=== PATIENT | male | born 1960 | race Caucasian/White ===

== ENCOUNTER → 2016-10-16 | Outpatient (CLI) | payer BC | LOC: MW.CHFP 13:06 | PROVIDERS: ATTEND Family Medicine | DX: E29.1 Testicular hypofunction (principal); N52.1 Erectile dysfunction due to diseases classified elsewhere | CPT/HCPCS: 36415; 84402; 84403 ==

== ENCOUNTER 2018-05-13 10:16 | Observation (INO) | payer MEDICAID ==
[2018-05-13] MEDS ORDERED: Famotidine 20 MG/2 ML SDV IVPUSH ONE (10:26)
[2018-05-13] MEDS ORDERED: Sodium Chloride 0.9% 10 ML Syringe FLUSH PRN (10:26)
[2018-05-13] MEDS ORDERED: Aspirin 81 MG Tab.Chew PO ONE (10:26)
[2018-05-13] MEDS ORDERED: Sodium Chloride 0.9% 1,000 ML IV ONE (10:26)
[2018-05-13] MEDS ORDERED: Sodium Chloride 0.9% 2.5 ML Syringe FLUSH PRN (10:26)
--- NOTE | 2018-05-13 10:33 | EDM.PDOC ---
ED HPI GENERAL MEDICAL PROBLEM - General Chief Complaint: Chest Pain Stated Complaint: CHEST PAINS Time Seen by Provider: 05/13/18 10:30 Source of Information: Reports: Patient History Limitations: Reports: No Limitations - History of Present Illness INITIAL COMMENTS - FREE TEXT/NARRATIVE: HISTORY AND PHYSICAL: []57-year-old male presenting with lower sternal chest pain History of Present Illness: []Patient noticed pain starting at 5:30 this morning and took some Prilosec it was indigestion Pain at that time was 8/10 at this time he says it's about a 6/10 No family history of cardiac disease Family members of "old age". Review of Systems: As per history of present illness and below otherwise all systems reviewed and negative. Past medical history: As per history of present illness and as reviewed below otherwise noncontributory. Surgical history: As per history of present illness and as reviewed below otherwise noncontributory. Social history: No reported history of drug or alcohol abuse. Family history: As per history of present illness and as reviewed below otherwise noncontributory. Physical exam: Alert and oriented gentleman answering questions appropriately in full sentences without any shortness of breath. HEENT: Atraumatic, normocehpalic, pupils reactive, negative for conjunctival pallor or scleral icterus, mucous membranes moist, throat clear, neck supple, nontender, trachea midline. Lungs: Clear to auscultation, breath sounds equal bilaterally, chest non tender. Heart: S1S2, regular, negative for clicks, rubs, or JVD. Abdomen: Soft, nondistended, nontender. Negative for masses or hepatossplenmegaly. Negative for costovertebral tenderness. Pelvis: Stable nontender. Genitourinary: Deferred. Rectal: Deferred Extremities: Atraumatic, negative for cords or calf pain. Neurovascular unremarkable. Neuro: Awake, alert, oriented. Cranial nerves II through XII unremarkable. Cerebellum unremarkable. Motor and sensory unremarkable throughout. Exam nonfocal. Have discussed with the patient that his troponin and EKG are negative for cardiac involvement however would recommend that he be observed on telemetry for the next 24 hours and he is agreeable to this recommended course of action. Discussed this case with Dr. Davenport who has accepted this patient for observation on telemetry chest pain rule out ACS/ Diagnostics: []CBC CMP and PT/INR troponin chest x-ray EKG Therapeutics: []Aspirin 1 L normal saline Protonix He's had Pepcid Nitrostat Impression: []Atypical chest pain Rule out ACS Plan: []Refer to observation on telemetry Definitive disposition and diagnosis as appropriate pending reevaluation and review of above. Onset: Today, Sudden Duration: Hour(s): Location: Reports: Chest Quality: Reports: Ache Severity: Moderate Improves with: Reports: None Worsens with: Reports: None Associated Symptoms: Reports: No Other Symptoms Left Chest Pain Score (Numeric/FACES): 6 - Related Data Allergies Allergy/AdvReac Type Severity Reaction Status Date / Time No Known Allergies Allergy Verified 05/13/18 10:24 Home Meds: Home Meds Hydrocodone/Acetaminophen [Hydrocodon-Acetaminophn 10-325] 10 - 325 mg PO DAILY 05/13/18 [History] Methadone 10 mg PO DAILY 05/13/18 [History] Testosterone Cypionate [Depo-Testosterone] 2,000 mg IM ASDIRECTED 05/13/18 [ History] ED ROS GENERAL - Review of Systems Review Of Systems: ROS reveals no pertinent complaints other than HPI. ED EXAM, GENERAL - Physical Exam Exam: See Below (see dictation) EKG INTERPRETATION EKG Date: 05/13/18 Rhythm: NSR Comparison: No Change Course - Vital Signs Last Recorded V/S: Last Vital Signs Temp 36.8 C 05/13/18 10:20 Pulse 67 05/13/18 10:20 Resp 20 05/13/18 10:20 BP 140/78 05/13/18 11:25 Pulse Ox 96 05/13/18 10:26 - Orders/Labs/Meds Orders: Active Orders 24 hr Category Date Time Status Cardiac Monitoring [RC] . DIRECTED Care 05/13/18 10:26 Active EKG Documentation Completion [RC] STAT Care 05/13/18 10:26 Active Oxygen Therapy [RC] ASDIRECTED Care 05/13/18 10:26 Active Pulse Oximetry [RC] ASDIRECTED Care 05/13/18 10:26 Active UA W/MICROSCOPIC [URIN] Stat Lab 05/13/18 10:27 Ordered Sodium Chloride 0.9% [Saline Flush] Med 05/13/18 10:26 Active 10 ml FLUSH ASDIRECTED PRN Sodium Chloride 0.9% [Saline Flush] Med 05/13/18 10:26 Active 2.5 ml FLUSH ASDIRECTED PRN Saline Lock Insert [OM.PC] Stat Oth 05/13/18 10:26 Ordered Medication Orders Sodium Chloride (Saline Flush) 10 ml FLUSH ASDIRECTED PRN PRN Reason: Keep Vein Open Sodium Chloride (Saline Flush) 2.5 ml FLUSH ASDIRECTED PRN PRN Reason: Keep Vein Open Labs: Laboratory Tests 05/13/18 05/13/18 05/13/18 Range/Units 10:24 10:24 10:24 WBC 11.87 H (4.0-11.0) K/uL RBC 5.13 (4.50-5.90) M/uL Hgb 15.5 (13.0-17.0) g/dL Hct 46.7 (38.0-50.0) % MCV 91.0 (80.0-98.0) fL MCH 30.2 (27.0-32.0) pg MCHC 33.2 (31.0-37.0) g/dL RDW Std Deviation 44.6 (28.0-62.0) fl RDW Coeff of Abdirizak 14 (11.0-15.0) % Plt Count 313 (150-400) K/uL MPV 9.00 (7.40-12.00) fL Neut % (Auto) 87.6 H (48.0-80.0) % Lymph % (Auto) 7.5 L (16.0-40.0) % [place] % (Auto) 4.0 (0.0-15.0) % Eos % (Auto) 0.7 (0.0-7.0) % Baso % (Auto) 0.2 (0.0-1.5) % Neut # (Auto) 10.4 H (1.4-5.7) K/uL Lymph # (Auto) 0.9 (0.6-2.4) K/uL [place] # (Auto) 0.5 (0.0-0.8) K/uL Eos # (Auto) 0.1 (0.0-0.7) K/uL Baso # (Auto) 0.0 (0.0-0.1) K/uL Nucleated RBC % 0.0 /100WBC Nucleated RBCs # 0 K/uL INR 0.95 Sodium 140 (136-148) mmol/L Potassium 3.5 (3.5-5.1) mmol/L Chloride 103 (98-107) mmol/L Carbon Dioxide 28.6 (21.0-32.0) mmol/L BUN 17 (7.0-18.0) mg/dL Creatinine 0.9 (0.8-1.3) mg/dL Est Cr Clr Drug Dosing 88.67 mL/min Estimated GFR (MDRD) > 60.0 ml/min Glucose 133 H (74-106) mg/dL Calcium 9.3 (8.5-10.1) mg/dL Total Bilirubin 0.2 (0.2-1.0) mg/dL AST 18 (15-37) IU/L ALT 24 (14-63) IU/L Alkaline Phosphatase 78 (46-116) U/L Troponin I < 0.050 (0.000-0.056) ng/mL Total Protein 7.6 (6.4-8.2) g/dL Albumin 4.1 (3.4-5.0) g/dL Globulin 3.5 (2.0-3.5) g/dL Albumin/Globulin Ratio 1.2 L (1.3-2.8) Amylase 70 (25-115) U/L Lipase 122 (73-393) U/L Meds: Medications Generic Name Dose Route Start Last Admin Trade Name Nickq PRN Reason Stop Dose Admin Sodium Chloride 10 ml 05/13/18 10:26 Saline Flush FLUSH ASDIRECTED PRN Keep Vein Open Sodium Chloride 2.5 ml 05/13/18 10:26 Saline Flush FLUSH ASDIRECTED PRN Keep Vein Open Discontinued Medications Generic Name Dose Route Start Last Admin Trade Name Freq PRN Reason Stop Dose Admin Aspirin 324 mg 05/13/18 10:05/13/18 10:41 Aspirin PO 05/13/18 10:27 324 mg ONETIME ONE Administration Famotidine 20 mg 05/13/18 10:05/13/18 10:41 Pepcid IVPUSH 05/13/18 10:27 20 mg ONETIME ONE Administration Sodium Chloride 1,000 mls @ 999 mls/hr 05/13/18 10:05/13/18 10:41 Normal Saline IV 05/13/18 11:26 999 mls/hr BOLUS ONE Administration Ketorolac Tromethamine 30 mg 05/13/18 11:29 Toradol IVPUSH 05/13/18 11:30 ONETIME ONE Nitroglycerin 0.4 mg 05/13/18 10:43 05/13/18 11:20 Nitrostat SL 0.4 mg Q5M PRN Administration Chest Pain Departure - Departure Time of Disposition: 11:39 Disposition: Refer to Observation Condition: Fair Clinical Impression: Atypical chest pain Referrals: PCP,None [Primary Care Provider] - Forms: ED Department Discharge - My Orders Last 24 Hours: My Active Orders 05/13/18 10:26 Cardiac Monitoring [RC] . DIRECTED EKG Documentation Completion [RC] STAT Oxygen Therapy [RC] ASDIRECTED Pulse Oximetry [RC] ASDIRECTED Sodium Chloride 0.9% [Saline Flush] 10 ml FLUSH ASDIRECTED PRN Sodium Chloride 0.9% [Saline Flush] 2.5 ml FLUSH ASDIRECTED PRN Saline Lock Insert [OM.PC] Stat 05/13/18 10:27 UA W/MICROSCOPIC [URIN] Stat - Assessment/Plan Last 24 Hours: My Active Orders 05/13/18 10:26 Cardiac Monitoring [RC] . DIRECTED EKG Documentation Completion [RC] STAT Oxygen Therapy [RC] ASDIRECTED Pulse Oximetry [RC] ASDIRECTED Sodium Chloride 0.9% [Saline Flush] 10 ml FLUSH ASDIRECTED PRN Sodium Chloride 0.9% [Saline Flush] 2.5 ml FLUSH ASDIRECTED PRN Saline Lock Insert [OM.PC] Stat 05/13/18 10:27 UA W/MICROSCOPIC [URIN] Stat
--- NOTE | 2018-05-13 11:00 | CR ---
EXAMINATION: Portable chest radiograph. HISTORY: Chest pain. FINDINGS: The trachea is midline. The cardiomediastinal silhouette is within normal limits. No pulmonary infilt rates, effusions or pneumothorax. Osseous structures appear unremarkable. IMPRESSION: No acute cardiopulmonary process.
[2018-05-13 11:02] LABS: CHLORIDE,CL 103 mmol/L (98-107); SODIUM,NA 140 mmol/L (136-148)
[2018-05-13] MEDS: Nitroglycerin 0.4 MG Tab.SL SL PRN ×3 (11:09→11:20)
[2018-05-13] MEDS ORDERED: Ketorolac 30 MG/ML SDV IVPUSH ONE (11:29)
--- NOTE | 2018-05-13 12:43 | PCM.HP ---
H&P History of Present Illness - General Date of Service: 05/13/18 Admit Problem/Dx: Admission Diagnosis/Problem Admission Diagnosis/Problem Chest pain Source of Information: Patient, Old Records History Limitations: Reports: No Limitations - History of Present Illness Initial Comments - Free Text/Narative: The patient is an otherwise healthy 57-year-old gentleman who had presented to the emergency room today with a complaint of chest pain. The patient's episode of chest pain stands out because he says that it woke him up at 5:30 this morning. The patient further says that the pain has been located into the lower , left part of his sternum and rib cage and he has described this as pressure. The patient says the pain does not radiate. The patient says that the pain has been relieved with the use of Toradol. The patient has denied any other specific aggravating or relieving factors. He says that the pain is down to a 1 out of 10. The patient reports that he had one episode of vomiting as well as diaphoresis to accompany this. No family history of early heart disease. The patient does not use tobacco. 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 Onset of Symptoms: Reports: Sudden Duration of Symptoms: Reports: Hour(s):, Improving Location: Reports: Chest. Denies: Radiates to Quality: Reports: Pressure Severity: Severe Improves with: Reports: Medication Worsens with: Reports: None Context: Reports: Rest Associated Symptoms: Reports: Diaphoresis, Nausea/Vomiting. Denies: Cough, Shortness of Breath, Syncope Left Chest Pain Score (Numeric/FACES): 3 - Related Data Allergies/Adverse Reactions: Allergies Allergy/AdvReac Type Severity Reaction Status Date / Time No Known Allergies Allergy Verified 05/13/18 10:24 Home Medications: Home Meds Hydrocodone/Acetaminophen [Hydrocodon-Acetaminophn 10-325] 10 - 325 mg PO DAILY 05/13/18 [History] Methadone 10 mg PO DAILY 05/13/18 [History] Testosterone Cypionate [Depo-Testosterone] 2,000 mg IM ASDIRECTED 05/13/18 [ History] Past Medical History HEENT History: Reports: Impaired Vision Other HEENT History: reading glasses Cardiovascular History: Reports: None Respiratory History: Reports: None Gastrointestinal History: Reports: GERD Genitourinary History: Reports: None Musculoskeletal History: Reports: Back Pain, Chronic Other Musculoskeletal History: sciatica Neurological History: Reports: None Psychiatric History: Reports: None Endocrine/Metabolic History: Reports: None Hematologic History: Reports: None Immunologic History: Reports: None Oncologic (Cancer) History: Reports: None Dermatologic History: Reports: None - Infectious Disease History Infectious Disease History: Reports: Chicken Pox - Past Surgical History Neurological Surgical History: Reports: Lumbar Spine Musculoskeletal Surgical History: Reports: Other (See Below) (Left elbow) Social & Family History - Family History Family Medical History: Noncontributory - Tobacco Use Smoking Status *Q: Former Smoker Years of Tobacco use: 18 Packs/Tins Daily: 1 Used Tobacco, but Quit: Yes Month/Year Tobacco Last Used: 2003 Second Hand Smoke Exposure: No - Caffeine Use Caffeine Use: Reports: Coffee - Alcohol Use Alcohol Use History: No Days Per Week of Alcohol Use: 1 Number of Drinks Per Day: 1 Total Drinks Per Week: 1 - Recreational Drug Use Recreational Drug Use: No - Living Situation & Occupation Living situation: Reports: , with Family Occupation: Employed H&P Review of Systems - Review of Systems: Review Of Systems: See Below General: Reports: Diaphoresis HEENT: Reports: No Symptoms Pulmonary: Reports: Shortness of Breath Cardiovascular: Reports: Chest Pain, Lightheadedness Gastrointestinal: Reports: Abdominal Pain, Vomiting Genitourinary: Reports: No Symptoms Musculoskeletal: Reports: Back Pain Skin: Reports: No Symptoms Psychiatric: Reports: No Symptoms Neurological: Reports: No Symptoms Hematologic/Lymphatic: Reports: No Symptoms Immunologic: Reports: No Symptoms Exam - Exam Exam: See Below - Vital Signs Vital Signs: Last Vital Signs Temp 36.2 C 05/13/18 12:15 Pulse 78 05/13/18 12:15 Resp 16 05/13/18 12:15 BP 132/77 05/13/18 12:15 Pulse Ox 96 05/13/18 12:15 Weight: 73.663 kg - Exam Quality Assessment: No: Supplemental Oxygen General: Alert, Oriented, Cooperative HEENT: Conjunctiva Clear, EACs Clear, EOMI, Hearing Intact, Mucosa Moist & [place] , Nares Patent Neck: Supple, Trachea Midline, Full Range of Motion. No: Lymphadenopathy Cardiovascular: Regular Rate, Regular Rhythm, Normal S1, Normal S2 GI/Abdominal Exam: Normal Bowel Sounds, Soft, Non-Tender, No Organomegaly, No Distention, No Mass (Male) Exam: Deferred Rectal (Males) Exam: Deferred Back Exam: Normal Inspection. No: Full Range of Motion (Secondary to multiple lumbar surgeries) Extremities: Normal Inspection, No Pedal Edema Neurological: Cranial Nerves Intact, Reflexes Equal Bilateral, Normal Gait, Focal Deficit (Mild left-sided foot flexor and extensor weakness with decreased muscle mass to lower extremity) Neuro Extensive - Mental Status: Alert, Oriented x3 Neuro Extensive - Motor, Sensory, Reflexes: CN II-XII Intact, Normal Gait Psychiatric: Alert, Normal Affect, Normal Mood - Patient Data Lab Results Last 24 hrs: Laboratory Results - last 24 hr 05/13/18 05/13/18 05/13/18 Range/Units 10:24 10:24 10:24 WBC 11.87 H (4.0-11.0) K/uL RBC 5.13 (4.50-5.90) M/uL Hgb 15.5 (13.0-17.0) g/dL Hct 46.7 (38.0-50.0) % MCV 91.0 (80.0-98.0) fL MCH 30.2 (27.0-32.0) pg MCHC 33.2 (31.0-37.0) g/dL RDW Std Deviation 44.6 (28.0-62.0) fl RDW Coeff of Abdirizak 14 (11.0-15.0) % Plt Count 313 (150-400) K/uL MPV 9.00 (7.40-12.00) fL Neut % (Auto) 87.6 H (48.0-80.0) % Lymph % (Auto) 7.5 L (16.0-40.0) % [place] % (Auto) 4.0 (0.0-15.0) % Eos % (Auto) 0.7 (0.0-7.0) % Baso % (Auto) 0.2 (0.0-1.5) % Neut # (Auto) 10.4 H (1.4-5.7) K/uL Lymph # (Auto) 0.9 (0.6-2.4) K/uL [place] # (Auto) 0.5 (0.0-0.8) K/uL Eos # (Auto) 0.1 (0.0-0.7) K/uL Baso # (Auto) 0.0 (0.0-0.1) K/uL Nucleated RBC % 0.0 /100WBC Nucleated RBCs # 0 K/uL INR 0.95 Sodium 140 (136-148) mmol/L Potassium 3.5 (3.5-5.1) mmol/L Chloride 103 (98-107) mmol/L Carbon Dioxide 28.6 (21.0-32.0) mmol/L BUN 17 (7.0-18.0) mg/dL Creatinine 0.9 (0.8-1.3) mg/dL Est Cr Clr Drug Dosing 88.67 mL/min Estimated GFR (MDRD) > 60.0 ml/min Glucose 133 H (74-106) mg/dL Calcium 9.3 (8.5-10.1) mg/dL Total Bilirubin 0.2 (0.2-1.0) mg/dL AST 18 (15-37) IU/L ALT 24 (14-63) IU/L Alkaline Phosphatase 78 (46-116) U/L Troponin I < 0.050 (0.000-0.056) ng/mL Total Protein 7.6 (6.4-8.2) g/dL Albumin 4.1 (3.4-5.0) g/dL Globulin 3.5 (2.0-3.5) g/dL Albumin/Globulin Ratio 1.2 L (1.3-2.8) Amylase 70 (25-115) U/L Lipase 122 (73-393) U/L Result Diagrams: 05/13/18 10:24 05/13/18 10:24 - Problem List (1) Atypical chest pain SNOMED Code(s): 975578769 ICD Code: R07.89 - OTHER CHEST PAIN Status: Acute Priority: High Current Visit: Yes (2) Chronic pain syndrome SNOMED Code(s): 164479133 ICD Code: G89.4 - CHRONIC PAIN SYNDROME Status: Chronic Priority: Medium Current Visit: Yes (3) Status post lumbar surgery SNOMED Code(s): 518152391, 465769899, 233921329 ICD Code: Z98.890 - OTHER SPECIFIED POSTPROCEDURAL STATES Status: Chronic Priority: Medium Current Visit: Yes (4) Lumbar myelopathy SNOMED Code(s): 79379355, 85249687 ICD Code: G95.9 - DISEASE OF SPINAL CORD, UNSPECIFIED Status: Chronic Priority: Medium Current Visit: Yes (5) Leukocytosis SNOMED Code(s): 047153457, 459945383 ICD Code: D72.829 - ELEVATED WHITE BLOOD CELL COUNT, UNSPECIFIED Status: Acute Priority: High Current Visit: Yes Qualifiers: Leukocytosis type: bandemia Qualified Code(s): D72.825 - Bandemia Problem List Initiated/Reviewed/Updated: Yes Orders Last 24hrs: Active Orders 24 hr Category Date Time Status Patient Status [ADT] Stat ADT 05/13/18 11:37 Active Cardiac Monitoring [RC] . DIRECTED Care 05/13/18 10:26 Active EKG Documentation Completion [RC] STAT Care 05/13/18 10:26 Active Oxygen Therapy [RC] ASDIRECTED Care 05/13/18 10:26 Active Pulse Oximetry [RC] ASDIRECTED Care 05/13/18 10:26 Active UA W/MICROSCOPIC [URIN] Stat Lab 05/13/18 10:27 Ordered Sodium Chloride 0.9% [Saline Flush] Med 05/13/18 10:26 Active 10 ml FLUSH ASDIRECTED PRN Sodium Chloride 0.9% [Saline Flush] Med 05/13/18 10:26 Active 2.5 ml FLUSH ASDIRECTED PRN Saline Lock Insert [OM.PC] Stat Oth 05/13/18 10:26 Ordered Medication Orders Sodium Chloride (Saline Flush) 10 ml FLUSH ASDIRECTED PRN PRN Reason: Keep Vein Open Sodium Chloride (Saline Flush) 2.5 ml FLUSH ASDIRECTED PRN PRN Reason: Keep Vein Open Assessment/Plan Comment:: The patient is a 57-year-old gentleman who had been admitted to rule out acute coronary syndrome. The patient does not have any pain at present time. The patient will be admitted observation and kept on telemetry. I've also ordered repeat troponins as well as laboratory testings for the morning. The patient also have an EKG in the morning. I anticipate that if the patient has had no reoccurrence of the chest pain and workup is thus far negative that he should be appropriate for discharge in the morning. Patient has been recommended to continue to ambulate as tolerated. He is also to have a heart healthy diet. The patient will also have when necessary medication for pain and sleep. Because of the patient's possible GERD causing his symptoms I've ordered Zantac for the patient today. The patient will be further evaluated for discharge in the morning.
[2018-05-13] MEDS ORDERED: Acetaminophen 325 MG Tab PO PRN (12:47)
[2018-05-13] MEDS ORDERED: Docusate Sodium 100 MG Cap PO PRN (12:47)
[2018-05-13] MEDS ORDERED: Temazepam 15 MG Cap PO PRN (12:47)
[2018-05-13] MEDS ORDERED: oxyCODONE 5 MG Tab PO PRN (12:47)
[2018-05-13] MEDS ORDERED: Ondansetron 4 MG Tab.DIS PO PRN (12:47)
[2018-05-13] MEDS ORDERED: Morphine 2 MG/ML Syringe IVPUSH PRN (12:47)
[2018-05-13] MEDS: Ranitidine 15 MG/ML Syrup 10 ML UD Cup PO SCH ×2 (14:20→20:18)
[2018-05-14 05:41] LABS: CHLORIDE,CL 107 mmol/L (98-107); SODIUM,NA 140 mmol/L (136-148)
--- NOTE | 2018-05-14 07:49 | PCM.DCSUM1 ---
<Juan Newton - Last Filed: 05/14/18 07:42> Discharge Summary - Hospital Course Free Text/Narrative:: Admission date:05/13/2018 Discharge date: 05/14/2018 Admission diagnosis: #1. ACS rule out #2. History of HTN, stomach ulcers Discharge diagnosis: #1. GERD #2. Chest pain resolved #3. History of HTN, stomach ulcer, testosterone therapy Hospital course: 57M with the above mentioned history that presented to the ER after experiencing chest pain in his sleep. Patient said that he woke up experiencing pain located on the right side/epigastric region that was reproducible, he thought it was acid reflux so took prilosec/tums that didnt help. In the ER, he got toradol which he said helped. Nitro made the chest pain worse. EKG was unremarkable, troponins trended x3 negative. In the morning on my evaluation, his chest pain had resolved. I went over the etiology of the issue with the patient. I'd like to set him up with an outpatient stress test. I'd also like to test him for H. Pylori for which his PCP can f/u on. He understands and agrees to the plan. Advised to return to seek attention if symptoms reoccur. He felt comfortable going home. - Discharge Data Discharge Date: 05/14/18 Discharge Disposition: Home, Self-Care 01 Condition: Fair - Patient Instructions Diet: Usual Diet as Tolerated Activity: As Tolerated Driving: May Drive Today Showering/Bathing: May Shower Wound/Incision Care: Keep Operative Site/Wound Site Clean and Dry Notify Provider of: Fever, Increased Pain, Swelling and Redness, Drainage, Nausea and/or Vomiting - Discharge Plan Home Medications: Home Meds Hydrocodone/Acetaminophen [Hydrocodon-Acetaminophn 10-325] 10 - 325 mg PO DAILY 05/13/18 [History] Methadone 10 mg PO DAILY 05/13/18 [History] Testosterone Cypionate [Depo-Testosterone] 2,000 mg IM ASDIRECTED 05/13/18 [ History] Patient Handouts: Nonspecific Chest Pain, [id number] Referrals: [facility] [Outside] Juan Newton MD [Resident] - 05/25/18 2:30 pm - Patient Data Vitals - Most Recent: Last Vital Signs Temp 36.6 C 05/14/18 04:00 Pulse 80 05/14/18 04:00 Resp 20 05/14/18 04:00 BP 144/88 H 05/14/18 04:00 Pulse Ox 97 05/14/18 04:00 Weight - Most Recent: 73.663 kg I&O - Last 24 hours: Intake & Output 05/13/18 05/14/18 05/14/18 22:59 06:59 14:59 Intake Total 0 480 Output Total 0 400 Balance 0 80 Lab Results - Last 24 hrs: Laboratory Results - last 24 hr 05/13/18 05/13/18 05/13/18 Range/Units 10:24 10:24 10:24 WBC 11.87 H (4.0-11.0) K/uL RBC 5.13 (4.50-5.90) M/uL Hgb 15.5 (13.0-17.0) g/dL Hct 46.7 (38.0-50.0) % MCV 91.0 (80.0-98.0) fL MCH 30.2 (27.0-32.0) pg MCHC 33.2 (31.0-37.0) g/dL RDW Std Deviation 44.6 (28.0-62.0) fl RDW Coeff of Abdirizak 14 (11.0-15.0) % Plt Count 313 (150-400) K/uL MPV 9.00 (7.40-12.00) fL Neut % (Auto) 87.6 H (48.0-80.0) % Lymph % (Auto) 7.5 L (16.0-40.0) % [place] % (Auto) 4.0 (0.0-15.0) % Eos % (Auto) 0.7 (0.0-7.0) % Baso % (Auto) 0.2 (0.0-1.5) % Neut # (Auto) 10.4 H (1.4-5.7) K/uL Lymph # (Auto) 0.9 (0.6-2.4) K/uL [place] # (Auto) 0.5 (0.0-0.8) K/uL Eos # (Auto) 0.1 (0.0-0.7) K/uL Baso # (Auto) 0.0 (0.0-0.1) K/uL Nucleated RBC % 0.0 /100WBC Nucleated RBCs # 0 K/uL INR 0.95 Sodium 140 (136-148) mmol/L Potassium 3.5 (3.5-5.1) mmol/L Chloride 103 (98-107) mmol/L Carbon Dioxide 28.6 (21.0-32.0) mmol/L BUN 17 (7.0-18.0) mg/dL Creatinine 0.9 (0.8-1.3) mg/dL Est Cr Clr Drug Dosing 88.67 mL/min Estimated GFR (MDRD) > 60.0 ml/min Glucose 133 H (74-106) mg/dL Calcium 9.3 (8.5-10.1) mg/dL Total Bilirubin 0.2 (0.2-1.0) mg/dL AST 18 (15-37) IU/L ALT 24 (14-63) IU/L Alkaline Phosphatase 78 (46-116) U/L Troponin I < 0.050 (0.000-0.056) ng/mL Total Protein 7.6 (6.4-8.2) g/dL Albumin 4.1 (3.4-5.0) g/dL Globulin 3.5 (2.0-3.5) g/dL Albumin/Globulin Ratio 1.2 L (1.3-2.8) Amylase 70 (25-115) U/L Lipase 122 (73-393) U/L Urine Color Urine Appearance Urine pH (5.0-8.0) Ur Specific [place] (1.001-1.035) Urine Protein (NEGATIVE) mg/dL Urine Glucose (UA) (NEGATIVE) mg/dL Urine Ketones (NEGATIVE) mg/dL Urine Occult Blood (NEGATIVE) Urine Nitrite (NEGATIVE) Urine Bilirubin (NEGATIVE) Urine Urobilinogen (<2.0) EU/dL Ur Leukocyte Esterase (NEGATIVE) Urine RBC (0-2/HPF) Urine WBC (0-5/HPF) Ur Epithelial Cells (NONE-FEW) Calcium Oxalate Crystal (NEGATIVE) Amorphous Sediment (NEGATIVE) Urine Bacteria (NEGATIVE) 05/13/18 05/13/18 05/13/18 Range/Units 16:30 17:15 22:34 WBC (4.0-11.0) K/uL RBC (4.50-5.90) M/uL Hgb (13.0-17.0) g/dL Hct (38.0-50.0) % MCV (80.0-98.0) fL MCH (27.0-32.0) pg MCHC (31.0-37.0) g/dL RDW Std Deviation (28.0-62.0) fl RDW Coeff of Abdirizak (11.0-15.0) % Plt Count (150-400) K/uL MPV (7.40-12.00) fL Neut % (Auto) (48.0-80.0) % Lymph % (Auto) (16.0-40.0) % [place] % (Auto) (0.0-15.0) % Eos % (Auto) (0.0-7.0) % Baso % (Auto) (0.0-1.5) % Neut # (Auto) (1.4-5.7) K/uL Lymph # (Auto) (0.6-2.4) K/uL Berks # (Auto) (0.0-0.8) K/uL Eos # (Auto) (0.0-0.7) K/uL Baso # (Auto) (0.0-0.1) K/uL Nucleated RBC % /100WBC Nucleated RBCs # K/uL INR Sodium (136-148) mmol/L Potassium (3.5-5.1) mmol/L Chloride (98-107) mmol/L Carbon Dioxide (21.0-32.0) mmol/L BUN (7.0-18.0) mg/dL Creatinine (0.8-1.3) mg/dL Est Cr Clr Drug Dosing mL/min Estimated GFR (MDRD) ml/min Glucose (74-106) mg/dL Calcium (8.5-10.1) mg/dL Total Bilirubin (0.2-1.0) mg/dL AST (15-37) IU/L ALT (14-63) IU/L Alkaline Phosphatase (46-116) U/L Troponin I < 0.050 < 0.050 (0.000-0.056) ng/mL Total Protein (6.4-8.2) g/dL Albumin (3.4-5.0) g/dL Globulin (2.0-3.5) g/dL Albumin/Globulin Ratio (1.3-2.8) Amylase (25-115) U/L Lipase (73-393) U/L Urine Color YELLOW Urine Appearance CLOUDY Urine pH 7.0 (5.0-8.0) Ur Specific [place] 1.020 (1.001-1.035) Urine Protein NEGATIVE (NEGATIVE) mg/dL Urine Glucose (UA) NEGATIVE (NEGATIVE) mg/dL Urine Ketones NEGATIVE (NEGATIVE) mg/dL Urine Occult Blood NEGATIVE (NEGATIVE) Urine Nitrite NEGATIVE (NEGATIVE) Urine Bilirubin NEGATIVE (NEGATIVE) Urine Urobilinogen 1.0 (<2.0) EU/dL Ur Leukocyte Esterase NEGATIVE (NEGATIVE) Urine RBC 0-1 (0-2/HPF) Urine WBC 0-2 (0-5/HPF) Ur Epithelial Cells RARE (NONE-FEW) Calcium Oxalate Crystal FEW (NEGATIVE) Amorphous Sediment HEAVY (NEGATIVE) Urine Bacteria FEW (NEGATIVE) 05/14/18 05/14/18 Range/Units 04:55 04:55 WBC 5.93 (4.0-11.0) K/uL RBC 4.52 (4.50-5.90) M/uL Hgb 13.2 (13.0-17.0) g/dL Hct 41.0 (38.0-50.0) % MCV 90.7 (80.0-98.0) fL MCH 29.2 (27.0-32.0) pg MCHC 32.2 (31.0-37.0) g/dL RDW Std Deviation 44.1 (28.0-62.0) fl RDW Coeff of Abdirizak 14 (11.0-15.0) % Plt Count 261 (150-400) K/uL MPV 9.00 (7.40-12.00) fL Neut % (Auto) 63.4 (48.0-80.0) % Lymph % (Auto) 22.9 (16.0-40.0) % [place] % (Auto) 9.3 (0.0-15.0) % Eos % (Auto) 3.9 (0.0-7.0) % Baso % (Auto) 0.5 (0.0-1.5) % Neut # (Auto) 3.8 (1.4-5.7) K/uL Lymph # (Auto) 1.4 (0.6-2.4) K/uL [place] # (Auto) 0.6 (0.0-0.8) K/uL Eos # (Auto) 0.2 (0.0-0.7) K/uL Baso # (Auto) 0.0 (0.0-0.1) K/uL Nucleated RBC % 0.0 /100WBC Nucleated RBCs # 0 K/uL INR Sodium 140 (136-148) mmol/L Potassium 4.2 (3.5-5.1) mmol/L Chloride 107 (98-107) mmol/L Carbon Dioxide 27.6 (21.0-32.0) mmol/L BUN 14 (7.0-18.0) mg/dL Creatinine 0.8 (0.8-1.3) mg/dL Est Cr Clr Drug Dosing 99.75 mL/min Estimated GFR (MDRD) > 60.0 ml/min Glucose 100 (74-106) mg/dL Calcium 8.7 (8.5-10.1) mg/dL Total Bilirubin (0.2-1.0) mg/dL AST (15-37) IU/L ALT (14-63) IU/L Alkaline Phosphatase (46-116) U/L Troponin I (0.000-0.056) ng/mL Total Protein (6.4-8.2) g/dL Albumin (3.4-5.0) g/dL Globulin (2.0-3.5) g/dL Albumin/Globulin Ratio (1.3-2.8) Amylase (25-115) U/L Lipase (73-393) U/L Urine Color Urine Appearance Urine pH (5.0-8.0) Ur Specific [place] (1.001-1.035) Urine Protein (NEGATIVE) mg/dL Urine Glucose (UA) (NEGATIVE) mg/dL Urine Ketones (NEGATIVE) mg/dL Urine Occult Blood (NEGATIVE) Urine Nitrite (NEGATIVE) Urine Bilirubin (NEGATIVE) Urine Urobilinogen (<2.0) EU/dL Ur Leukocyte Esterase (NEGATIVE) Urine RBC (0-2/HPF) Urine WBC (0-5/HPF) Ur Epithelial Cells (NONE-FEW) Calcium Oxalate Crystal (NEGATIVE) Amorphous Sediment (NEGATIVE) Urine Bacteria (NEGATIVE) Med Orders - Current: Current Medications Acetaminophen (Tylenol) 650 mg PO Q4H PRN PRN Reason: Pain (Mild 1-3)/fever Hydrocodone Bitart/Acetaminophen ([place] 325-10 Mg) 1 tab PO DAILY [facility] Docusate Sodium (Colace) 100 mg PO BID PRN PRN Reason: Constipation Methadone HCl (Methadone) 10 mg PO DAILY [facility] Morphine Sulfate (Morphine) 2 mg IVPUSH Q2H PRN PRN Reason: Pain (severe 7-10) Stop: 05/14/18 12:49 Last Admin: 05/13/18 20:16 Dose: 2 mg Nicotine (Habitrol) 14 mg TRDERM DAILY [facility] Ondansetron HCl (Zofran Odt) 4 mg PO Q6H PRN PRN Reason: nausea, able to take PO Oxycodone HCl (Oxycodone) 5 mg PO Q4H PRN PRN Reason: Pain (moderate 4-6) Last Admin: 05/14/18 06:43 Dose: 5 mg Ranitidine HCl (Zantac) 150 mg PO BID [facility] Last Admin: 05/13/18 20:18 Dose: 10 ml Sodium Chloride (Saline Flush) 10 ml FLUSH ASDIRECTED PRN PRN Reason: Keep Vein Open Sodium Chloride (Saline Flush) 2.5 ml FLUSH ASDIRECTED PRN PRN Reason: Keep Vein Open Temazepam (Restoril) 15 mg PO BEDTIME PRN PRN Reason: Sleep Discontinued Medications Aspirin (Aspirin) 324 mg PO ONETIME ONE Stop: 05/13/18 10:27 Last Admin: 05/13/18 10:41 Dose: 324 mg Famotidine (Pepcid) 20 mg IVPUSH ONETIME ONE Stop: 05/13/18 10:27 Last Admin: 05/13/18 10:41 Dose: 20 mg Sodium Chloride (Normal Saline) 1,000 mls @ 999 mls/hr IV BOLUS ONE Stop: 05/13/18 11:26 Last Admin: 05/13/18 10:41 Dose: 999 mls/hr Ketorolac Tromethamine (Toradol) 30 mg IVPUSH ONETIME ONE Stop: 05/13/18 11:30 Last Admin: 05/13/18 11:37 Dose: 30 mg Nitroglycerin (Nitrostat) 0.4 mg SL Q5M PRN PRN Reason: Chest Pain Last Admin: 05/13/18 11:20 Dose: 0.4 mg <Bean Davenport - Last Filed: 05/14/18 09:17> Discharge Summary - Hospital Course HPI Initial Comments: I seen and examined the patient independent of medical microbiologist. I initially admitted the patient for acute coronary syndrome rule out. The patient had tolerated this short hospitalization well. Troponins were trended and were essentially undetectable. Patient's EKG was normal and static. The patient has been recommended to follow-up with cardiology for a outpatient stress test. I have reviewed and agree with the assessment and plan of care by medical microbiologist. Please see orders. - Discharge Diagnosis/Problem(s) (1) Atypical chest pain SNOMED Code(s): 361536803 ICD Code: R07.89 - OTHER CHEST PAIN Status: Acute Priority: High Current Visit: Yes (2) Chronic pain syndrome SNOMED Code(s): 315284048 ICD Code: G89.4 - CHRONIC PAIN SYNDROME Status: Chronic Priority: Medium Current Visit: Yes (3) Status post lumbar surgery SNOMED Code(s): 669776970, 200777343, 521874415 ICD Code: Z98.890 - OTHER SPECIFIED POSTPROCEDURAL STATES Status: Chronic Priority: Medium Current Visit: Yes (4) Lumbar myelopathy SNOMED Code(s): 68429179, 58036434 ICD Code: G95.9 - DISEASE OF SPINAL CORD, UNSPECIFIED Status: Chronic Priority: Medium Current Visit: Yes (5) Leukocytosis SNOMED Code(s): 594632666, 652172799 ICD Code: D72.829 - ELEVATED WHITE BLOOD CELL COUNT, UNSPECIFIED Status: Acute Priority: High Current Visit: Yes Qualifiers: Leukocytosis type: bandemia Qualified Code(s): D72.825 - Bandemia - Patient Data Vitals - Most Recent: Last Vital Signs Temp 36.6 C 05/14/18 08:00 Pulse 69 05/14/18 08:00 Resp 12 05/14/18 08:00 BP 136/87 05/14/18 08:00 Pulse Ox 97 05/14/18 04:00 I&O - Last 24 hours: Intake & Output 05/13/18 05/14/18 05/14/18 22:59 06:59 14:59 Intake Total 0 480 600 Output Total 0 400 Balance 0 80 600 Lab Results - Last 24 hrs: Laboratory Results - last 24 hr 05/13/18 05/13/18 05/13/18 Range/Units 10:24 10:24 10:24 WBC 11.87 H (4.0-11.0) K/uL RBC 5.13 (4.50-5.90) M/uL Hgb 15.5 (13.0-17.0) g/dL Hct 46.7 (38.0-50.0) % MCV 91.0 (80.0-98.0) fL MCH 30.2 (27.0-32.0) pg MCHC 33.2 (31.0-37.0) g/dL RDW Std Deviation 44.6 (28.0-62.0) fl RDW Coeff of Abdirizak 14 (11.0-15.0) % Plt Count 313 (150-400) K/uL MPV 9.00 (7.40-12.00) fL Neut % (Auto) 87.6 H (48.0-80.0) % Lymph % (Auto) 7.5 L (16.0-40.0) % Berks % (Auto) 4.0 (0.0-15.0) % Eos % (Auto) 0.7 (0.0-7.0) % Baso % (Auto) 0.2 (0.0-1.5) % Neut # (Auto) 10.4 H (1.4-5.7) K/uL Lymph # (Auto) 0.9 (0.6-2.4) K/uL Berks # (Auto) 0.5 (0.0-0.8) K/uL Eos # (Auto) 0.1 (0.0-0.7) K/uL Baso # (Auto) 0.0 (0.0-0.1) K/uL Nucleated RBC % 0.0 /100WBC Nucleated RBCs # 0 K/uL INR 0.95 Sodium 140 (136-148) mmol/L Potassium 3.5 (3.5-5.1) mmol/L Chloride 103 (98-107) mmol/L Carbon Dioxide 28.6 (21.0-32.0) mmol/L BUN 17 (7.0-18.0) mg/dL Creatinine 0.9 (0.8-1.3) mg/dL Est Cr Clr Drug Dosing 88.67 mL/min Estimated GFR (MDRD) > 60.0 ml/min Glucose 133 H (74-106) mg/dL Calcium 9.3 (8.5-10.1) mg/dL Total Bilirubin 0.2 (0.2-1.0) mg/dL AST 18 (15-37) IU/L ALT 24 (14-63) IU/L Alkaline Phosphatase 78 (46-116) U/L Troponin I < 0.050 (0.000-0.056) ng/mL Total Protein 7.6 (6.4-8.2) g/dL Albumin 4.1 (3.4-5.0) g/dL Globulin 3.5 (2.0-3.5) g/dL Albumin/Globulin Ratio 1.2 L (1.3-2.8) Amylase 70 (25-115) U/L Lipase 122 (73-393) U/L Urine Color Urine Appearance Urine pH (5.0-8.0) Ur Specific [place] (1.001-1.035) Urine Protein (NEGATIVE) mg/dL Urine Glucose (UA) (NEGATIVE) mg/dL Urine Ketones (NEGATIVE) mg/dL Urine Occult Blood (NEGATIVE) Urine Nitrite (NEGATIVE) Urine Bilirubin (NEGATIVE) Urine Urobilinogen (<2.0) EU/dL Ur Leukocyte Esterase (NEGATIVE) Urine RBC (0-2/HPF) Urine WBC (0-5/HPF) Ur Epithelial Cells (NONE-FEW) Calcium Oxalate Crystal (NEGATIVE) Amorphous Sediment (NEGATIVE) Urine Bacteria (NEGATIVE) 05/13/18 05/13/18 05/13/18 Range/Units 16:30 17:15 22:34 WBC (4.0-11.0) K/uL RBC (4.50-5.90) M/uL Hgb (13.0-17.0) g/dL Hct (38.0-50.0) % MCV (80.0-98.0) fL MCH (27.0-32.0) pg MCHC (31.0-37.0) g/dL RDW Std Deviation (28.0-62.0) fl RDW Coeff of Abdirizak (11.0-15.0) % Plt Count (150-400) K/uL MPV (7.40-12.00) fL Neut % (Auto) (48.0-80.0) % Lymph % (Auto) (16.0-40.0) % [place] % (Auto) (0.0-15.0) % Eos % (Auto) (0.0-7.0) % Baso % (Auto) (0.0-1.5) % Neut # (Auto) (1.4-5.7) K/uL Lymph # (Auto) (0.6-2.4) K/uL [place] # (Auto) (0.0-0.8) K/uL Eos # (Auto) (0.0-0.7) K/uL Baso # (Auto) (0.0-0.1) K/uL Nucleated RBC % /100WBC Nucleated RBCs # K/uL INR Sodium (136-148) mmol/L Potassium (3.5-5.1) mmol/L Chloride (98-107) mmol/L Carbon Dioxide (21.0-32.0) mmol/L BUN (7.0-18.0) mg/dL Creatinine (0.8-1.3) mg/dL Est Cr Clr Drug Dosing mL/min Estimated GFR (MDRD) ml/min Glucose (74-106) mg/dL Calcium (8.5-10.1) mg/dL Total Bilirubin (0.2-1.0) mg/dL AST (15-37) IU/L ALT (14-63) IU/L Alkaline Phosphatase (46-116) U/L Troponin I < 0.050 < 0.050 (0.000-0.056) ng/mL Total Protein (6.4-8.2) g/dL Albumin (3.4-5.0) g/dL Globulin (2.0-3.5) g/dL Albumin/Globulin Ratio (1.3-2.8) Amylase (25-115) U/L Lipase (73-393) U/L Urine Color YELLOW Urine Appearance CLOUDY Urine pH 7.0 (5.0-8.0) Ur Specific [place] 1.020 (1.001-1.035) Urine Protein NEGATIVE (NEGATIVE) mg/dL Urine Glucose (UA) NEGATIVE (NEGATIVE) mg/dL Urine Ketones NEGATIVE (NEGATIVE) mg/dL Urine Occult Blood NEGATIVE (NEGATIVE) Urine Nitrite NEGATIVE (NEGATIVE) Urine Bilirubin NEGATIVE (NEGATIVE) Urine Urobilinogen 1.0 (<2.0) EU/dL Ur Leukocyte Esterase NEGATIVE (NEGATIVE) Urine RBC 0-1 (0-2/HPF) Urine WBC 0-2 (0-5/HPF) Ur Epithelial Cells RARE (NONE-FEW) Calcium Oxalate Crystal FEW (NEGATIVE) Amorphous Sediment HEAVY (NEGATIVE) Urine Bacteria FEW (NEGATIVE) 05/14/18 05/14/18 Range/Units 04:55 04:55 WBC 5.93 (4.0-11.0) K/uL RBC 4.52 (4.50-5.90) M/uL Hgb 13.2 (13.0-17.0) g/dL Hct 41.0 (38.0-50.0) % MCV 90.7 (80.0-98.0) fL MCH 29.2 (27.0-32.0) pg MCHC 32.2 (31.0-37.0) g/dL RDW Std Deviation 44.1 (28.0-62.0) fl RDW Coeff of Abdirizak 14 (11.0-15.0) % Plt Count 261 (150-400) K/uL MPV 9.00 (7.40-12.00) fL Neut % (Auto) 63.4 (48.0-80.0) % Lymph % (Auto) 22.9 (16.0-40.0) % [place] % (Auto) 9.3 (0.0-15.0) % Eos % (Auto) 3.9 (0.0-7.0) % Baso % (Auto) 0.5 (0.0-1.5) % Neut # (Auto) 3.8 (1.4-5.7) K/uL Lymph # (Auto) 1.4 (0.6-2.4) K/uL [place] # (Auto) 0.6 (0.0-0.8) K/uL Eos # (Auto) 0.2 (0.0-0.7) K/uL Baso # (Auto) 0.0 (0.0-0.1) K/uL Nucleated RBC % 0.0 /100WBC Nucleated RBCs # 0 K/uL INR Sodium 140 (136-148) mmol/L Potassium 4.2 (3.5-5.1) mmol/L Chloride 107 (98-107) mmol/L Carbon Dioxide 27.6 (21.0-32.0) mmol/L BUN 14 (7.0-18.0) mg/dL Creatinine 0.8 (0.8-1.3) mg/dL Est Cr Clr Drug Dosing 99.75 mL/min Estimated GFR (MDRD) > 60.0 ml/min Glucose 100 (74-106) mg/dL Calcium 8.7 (8.5-10.1) mg/dL Total Bilirubin (0.2-1.0) mg/dL AST (15-37) IU/L ALT (14-63) IU/L Alkaline Phosphatase (46-116) U/L Troponin I (0.000-0.056) ng/mL Total Protein (6.4-8.2) g/dL Albumin (3.4-5.0) g/dL Globulin (2.0-3.5) g/dL Albumin/Globulin Ratio (1.3-2.8) Amylase (25-115) U/L Lipase (73-393) U/L Urine Color Urine Appearance Urine pH (5.0-8.0) Ur Specific [place] (1.001-1.035) Urine Protein (NEGATIVE) mg/dL Urine Glucose (UA) (NEGATIVE) mg/dL Urine Ketones (NEGATIVE) mg/dL Urine Occult Blood (NEGATIVE) Urine Nitrite (NEGATIVE) Urine Bilirubin (NEGATIVE) Urine Urobilinogen (<2.0) EU/dL Ur Leukocyte Esterase (NEGATIVE) Urine RBC (0-2/HPF) Urine WBC (0-5/HPF) Ur Epithelial Cells (NONE-FEW) Calcium Oxalate Crystal (NEGATIVE) Amorphous Sediment (NEGATIVE) Urine Bacteria (NEGATIVE) Med Orders - Current: Current Medications Acetaminophen (Tylenol) 650 mg PO Q4H PRN PRN Reason: Pain (Mild 1-3)/fever Hydrocodone Bitart/Acetaminophen ([place] 325-10 Mg) 1 tab PO DAILY [facility] Last Admin: 05/14/18 08:53 Dose: 1 tab Docusate Sodium (Colace) 100 mg PO BID PRN PRN Reason: Constipation Methadone HCl (Methadone) 10 mg PO DAILY [facility] Last Admin: 05/14/18 08:52 Dose: 10 mg Morphine Sulfate (Morphine) 2 mg IVPUSH Q2H PRN PRN Reason: Pain (severe 7-10) Stop: 05/14/18 12:49 Last Admin: 05/13/18 20:16 Dose: 2 mg Nicotine (Habitrol) 14 mg TRDERM DAILY [facility] Last Admin: 05/14/18 08:54 Dose: Not Given Ondansetron HCl (Zofran Odt) 4 mg PO Q6H PRN PRN Reason: nausea, able to take PO Oxycodone HCl (Oxycodone) 5 mg PO Q4H PRN PRN Reason: Pain (moderate 4-6) Last Admin: 05/14/18 06:43 Dose: 5 mg Ranitidine HCl (Zantac) 150 mg PO BID [facility] Last Admin: 05/14/18 08:53 Dose: 10 ml Sodium Chloride (Saline Flush) 10 ml FLUSH ASDIRECTED PRN PRN Reason: Keep Vein Open Sodium Chloride (Saline Flush) 2.5 ml FLUSH ASDIRECTED PRN PRN Reason: Keep Vein Open Temazepam (Restoril) 15 mg PO BEDTIME PRN PRN Reason: Sleep Discontinued Medications Aspirin (Aspirin) 324 mg PO ONETIME ONE Stop: 05/13/18 10:27 Last Admin: 05/13/18 10:41 Dose: 324 mg Famotidine (Pepcid) 20 mg IVPUSH ONETIME ONE Stop: 05/13/18 10:27 Last Admin: 05/13/18 10:41 Dose: 20 mg Sodium Chloride (Normal Saline) 1,000 mls @ 999 mls/hr IV BOLUS ONE Stop: 05/13/18 11:26 Last Admin: 05/13/18 10:41 Dose: 999 mls/hr Ketorolac Tromethamine (Toradol) 30 mg IVPUSH ONETIME ONE Stop: 05/13/18 11:30 Last Admin: 05/13/18 11:37 Dose: 30 mg Nitroglycerin (Nitrostat) 0.4 mg SL Q5M PRN PRN Reason: Chest Pain Last Admin: 05/13/18 11:20 Dose: 0.4 mg
[2018-05-14] MEDS: Ranitidine 15 MG/ML Syrup 10 ML UD Cup PO SCH (08:53)
[2018-05-14] MEDS ORDERED: Methadone 10 MG Tab PO SCH (09:00)
[2018-05-14] MEDS ORDERED: Nicotine 14 MG/24 Hr Patch TRDERM SCH (09:00)
[2018-05-14] MEDS ORDERED: Acetaminophen/HYDROcodone 325-10 MG Tab PO SCH (09:00)
== END 2018-05-14 09:20 | disposition home or self-care (01) ==
LOC: MW.ED 10:16 → MW.MS 11:37
PROVIDERS: ADMIT Internal Medicine; ATTEND Internal Medicine
DX: R07.89 Other chest pain (principal); I10 Essential (primary) hypertension; K21.9 Gastro-esophageal reflux disease without esophagitis; G89.4 Chronic pain syndrome; G95.9 Disease of spinal cord, unspecified; D72.825 Bandemia; Z87.891 Personal history of nicotine dependence; Z87.11 Personal history of peptic ulcer disease; Z98.890 Other specified postprocedural states
CPT/HCPCS: 36415; 71045; 71045-26; 80048; 80053; 81001; 82150; 83690; 84484; 85025; 85610; 93005; 96361; 96374; 96375; 99283; 99285-25; A9270-GY; G0378; J1885; J2270; J3490; J7040

== ENCOUNTER 2019-03-26 17:37 | Observation (INO) | payer MEDICAID, OTHER ==
[2019-03-26] MEDS ORDERED: Aspirin 81 MG Tab.Chew PO ONE (17:48)
[2019-03-26] MEDS: Nitroglycerin 0.4 MG Tab.SL SL PRN ×3 (17:58→18:10)
[2019-03-26] MEDS ORDERED: Sodium Chloride 0.9% 1,000 ML IV ONE (18:11)
[2019-03-26] MEDS ORDERED: Morphine 2 MG/ML Syringe IVPUSH ONE ×2 (18:28→20:45)
[2019-03-26 18:29] LABS: CHLORIDE,CL 100 mmol/L (98-107); SODIUM,NA 141 mmol/L (136-148)
[2019-03-26] MEDS ORDERED: Morphine 2 MG/ML Syringe ONE (18:31)
[2019-03-26] MEDS ORDERED: Iopamidol 755 Mg/ML 100 ML Bottle IVPUSH ONE (19:00)
--- NOTE | 2019-03-26 19:06 | EDM.PDOC ---
ED HPI GENERAL MEDICAL PROBLEM - General Chief Complaint: Chest Pain Stated Complaint: CHEST PAINS Time Seen by Provider: 03/26/19 17:43 Source of Information: Reports: Patient History Limitations: Reports: No Limitations - History of Present Illness INITIAL COMMENTS - FREE TEXT/NARRATIVE: HISTORY AND PHYSICAL: History of present illness: Patient is a 58-year-old male presents to the ED today with concern of mid sternal chest pain that started about 6 this morning. Patient states he also feels nauseous and has a little bit of right upper quadrant abdominal pain. He rates his abdominal pain 3 out of 10 in his chest pain an 8 out of 10. Patient states he has not taken anything for his symptoms. Patient states he does drink alcohol on a regular basis approximately has 2-3 drinks a day. Patient states he also smokes heavily and has so for many years. Patient denies any other health history. Patient denies fever, chills, shortness of breath, or cough. Denies headache, neck stiff ness, change in vision, syncope, or near syncope. Denies nausea, vomiting,diarrhea, constipation, or dysuria. Has not noted any blood in urine or stool. Patient has been eating and drinking appropriately. Review of systems: As per history of present illness and below otherwise all systems reviewed and negative. Past medical history: As per history of present illness and as reviewed below otherwise noncontributory. Surgical history: As per history of present illness and as reviewed below otherwise noncontributory. Social history: See social history for further information Family history: As per history of present illness and as reviewed below otherwise noncontributory. Physical exam: General: Patient is alert, oriented, and in no acute distress. Patient laying on exam table and does appear uncomfortable. HEENT: Atraumatic, normocephalic, pupils equal and reactive bilaterally, negative for conjunctival pallor or scleral icterus, mucous membranes moist, TMs normal bilaterally, throat clear, neck supple, nontender, trachea midline. No drooling or trismus noted. No meningeal signs. No hot potato voice noted. Lungs: Clear to auscultation, breath sounds equal bilaterally, chest nontender. Heart: S1S2, regular rate and rhythm without overt murmur. Positive Hirsch sign. Abdomen: Soft, nondistended. Severe pain to palpation of the right upper quadrant with guarding. Negative for masses or hepatosplenomegaly. Negative for costovertebral tenderness. Pelvis: Stable nontender. Genitourinary: Deferred. Rectal: Deferred. Skin: Intact, warm, dry. No lesions or rashes noted. Extremities: Atraumatic, negative for cords or calf pain. Neurovascular unremarkable. Neuro: Awake, alert, oriented. Cranial nerves II through XII unremarkable. Cerebellum unremarkable. Motor and sensory unremarkable throughout. Exam nonfocal. Notes: Dr. Barbosa verbally involved in patient care. Dr. Fitch, general surgery on-call, was consult on patient and will admit to observation. Voices understanding and is agreeable to plan of care. Denies any further questions or concerns at this time. Diagnostics: CBC, CMP, UA, EKG, troponin, chest x-ray, lipase, amylase, PT/INR, abdominal pelvic CT, RUQ US Therapeutics: Saline, aspirin, nitroglycerin, morphine Impression: Acute cholecystitis Leukocytosis Plan: 1. Admit to observation to Dr. Fitch. Definitive disposition and diagnosis as appropriate pending reevaluation and review of above. Chest Pain Score (Numeric/FACES): 7 - Related Data Allergies Allergy/AdvReac Type Severity Reaction Status Date / Time No Known Allergies Allergy Verified 03/26/19 17:44 Home Meds: Home Meds Hydrocodone/Acetaminophen [Hydrocodon-Acetaminophn 10-325] 10 - 325 mg PO DAILY 05/13/18 [History] Methadone 10 mg PO DAILY 05/13/18 [History] Testosterone Cypionate [Depo-Testosterone] 2,000 mg IM ASDIRECTED 05/13/18 [ History] Past Medical History HEENT History: Reports: Impaired Vision Other HEENT History: reading glasses Cardiovascular History: Reports: None Respiratory History: Reports: None Gastrointestinal History: Reports: GERD Genitourinary History: Reports: None Musculoskeletal History: Reports: Back Pain, Chronic Other Musculoskeletal History: sciatica Neurological History: Reports: None Psychiatric History: Reports: None Endocrine/Metabolic History: Reports: None Hematologic History: Reports: None Immunologic History: Reports: None Oncologic (Cancer) History: Reports: None Dermatologic History: Reports: None - Infectious Disease History Infectious Disease History: Reports: Chicken Pox - Past Surgical History Neurological Surgical History: Reports: Lumbar Spine Musculoskeletal Surgical History: Reports: Other (See Below) Social & Family History - Family History Family Medical History: Noncontributory - Tobacco Use Smoking Status *Q: Current Every Day Smoker Years of Tobacco use: 2 Packs/Tins Daily: 0.5 - Caffeine Use Caffeine Use: Reports: Coffee - Recreational Drug Use Recreational Drug Use: No - Living Situation & Occupation Living situation: Reports: , with Family Occupation: Employed ED ROS GENERAL - Review of Systems Review Of Systems: ROS reveals no pertinent complaints other than HPI. ED EXAM, GENERAL - Physical Exam Exam: See Below (See dictation) Course - Vital Signs Last Recorded V/S: Last Vital Signs Temp 36.7 C 03/26/19 17:44 Pulse 82 03/26/19 20:01 Resp 18 03/26/19 20:01 BP 152/78 H 03/26/19 20:01 Pulse Ox 97 03/26/19 20:01 - Orders/Labs/Meds Orders: Active Orders 24 hr Category Date Time Status Admission Status [Patient Status] [ADT] Stat ADT 03/26/19 21:34 Active Cardiac Monitoring [RC] . DIRECTED Care 03/26/19 17:44 Active EKG Documentation Completion [RC] STAT Care 03/26/19 17:44 Active UA RFX GET AND CULT IF INDIC [URIN] Stat Lab 03/26/19 17:49 Ordered Nitroglycerin [Nitrostat] Med 03/26/19 17:44 Active 0.4 mg SL Q5M PRN Medication Orders Nitroglycerin (Nitrostat) 0.4 mg SL Q5M PRN PRN Reason: Chest Pain Stop: 03/27/19 17:44 Last Admin: 03/26/19 18:10 Dose: 0.4 mg Admin: 03/26/19 18:04 Dose: 0.4 mg Admin: 03/26/19 17:58 Dose: 0.4 mg Labs: Laboratory Tests 03/26/19 03/26/19 03/26/19 Range/Units 17:55 17:55 17:55 WBC 16.23 H (4.0-11.0) K/uL RBC 4.89 (4.50-5.90) M/uL Hgb 14.9 (13.0-17.0) g/dL Hct 45.1 (38.0-50.0) % MCV 92.2 (80.0-98.0) fL MCH 30.5 (27.0-32.0) pg MCHC 33.0 (31.0-37.0) g/dL RDW Std Deviation 44.9 (28.0-62.0) fl RDW Coeff of Abdirizak 14 (11.0-15.0) % Plt Count 343 (150-400) K/uL MPV 9.00 (7.40-12.00) fL Neut % (Auto) 88.1 H (48.0-80.0) % Lymph % (Auto) 5.6 L (16.0-40.0) % [place] % (Auto) 5.9 (0.0-15.0) % Eos % (Auto) 0.3 (0.0-7.0) % Baso % (Auto) 0.1 (0.0-1.5) % Neut # (Auto) 14.3 H (1.4-5.7) K/uL Lymph # (Auto) 0.9 (0.6-2.4) K/uL [place] # (Auto) 1.0 H (0.0-0.8) K/uL Eos # (Auto) 0.1 (0.0-0.7) K/uL Baso # (Auto) 0.0 (0.0-0.1) K/uL INR 0.95 Sodium 141 (136-148) mmol/L Potassium 3.7 (3.5-5.1) mmol/L Chloride 100 (98-107) mmol/L Carbon Dioxide 28.1 (21.0-32.0) mmol/L BUN 9 (7.0-18.0) mg/dL Creatinine 0.8 (0.8-1.3) mg/dL Est Cr Clr Drug Dosing 91.93 mL/min Estimated GFR (MDRD) > 60.0 ml/min Glucose 104 (74-106) mg/dL Calcium 9.4 (8.5-10.1) mg/dL Total Bilirubin 0.3 (0.2-1.0) mg/dL AST 13 L (15-37) IU/L ALT 17 (14-63) IU/L Alkaline Phosphatase 79 (46-116) U/L Troponin I < 0.050 (0.000-0.056) ng/mL Total Protein 7.2 (6.4-8.2) g/dL Albumin 4.0 (3.4-5.0) g/dL Globulin 3.2 (2.6-4.0) g/dL Albumin/Globulin Ratio 1.3 (0.9-1.6) Amylase 47 (25-115) U/L Lipase 59 L (73-393) U/L Meds: Medications Generic Name Dose Route Start Last Admin Trade Name Freq PRN Reason Stop Dose Admin Nitroglycerin 0.4 mg 03/26/19 17:44 03/26/19 18:10 Nitrostat SL 03/27/19 17:44 0.4 mg Q5M PRN Administration Chest Pain Discontinued Medications Generic Name Dose Route Start Last Admin Trade Name Freq PRN Reason Stop Dose Admin Aspirin 324 mg 03/26/19 17:48 03/26/19 17:57 Aspirin PO 03/26/19 17:49 324 mg ONETIME ONE Administration Sodium Chloride 1,000 mls @ 999 mls/hr 03/26/19 18:11 03/26/19 18:10 Normal Saline IV 03/26/19 19:11 999 mls/hr BOLUS ONE Administration Iopamidol 100 ml 03/26/19 19:00 03/26/19 19:01 [id number] (76%) IVPUSH 03/26/19 19:01 100 ml ONETIME ONE Administration Morphine Sulfate 2 mg 03/26/19 18:28 03/26/19 18:34 Morphine IVPUSH 03/26/19 18:29 2 mg ONETIME ONE Administration Morphine Sulfate Confirm 03/26/19 18:31 03/26/19 18:53 Morphine Administered 03/26/19 18:32 Not Given Dose 2 mg .ROUTE .STK-MED ONE Morphine Sulfate 2 mg 03/26/19 20:45 Morphine IVPUSH 03/26/19 20:46 ONETIME ONE Departure - Departure Time of Disposition: 21:39 Disposition: Refer to Observation Clinical Impression: Acute cholecystitis Leukocytosis Qualifiers: Leukocytosis type: bandemia Qualified Code(s): D72.825 - Bandemia - Discharge Information - My Orders Last 24 Hours: My Active Orders 03/26/19 17:44 Cardiac Monitoring [RC] . DIRECTED EKG Documentation Completion [RC] STAT Nitroglycerin [Nitrostat] 0.4 mg SL Q5M PRN 03/26/19 17:49 UA RFX GET AND CULT IF INDIC [URIN] Stat 03/26/19 21:34 Admission Status [Patient Status] [ADT] Stat - Assessment/Plan Last 24 Hours: My Active Orders 03/26/19 17:44 Cardiac Monitoring [RC] . DIRECTED EKG Documentation Completion [RC] STAT Nitroglycerin [Nitrostat] 0.4 mg SL Q5M PRN 03/26/19 17:49 UA RFX GET AND CULT IF INDIC [URIN] Stat 03/26/19 21:34 Admission Status [Patient Status] [ADT] Stat
--- NOTE | 2019-03-26 19:36 | CR ---
INDICATION: Chest pain. TECHNIQUE: Chest 1 view. COMPARISON: 05/13/18. FINDINGS: Cardiovascular and mediastinum: Heart size and vasculature are normal in caliber and appearance. Mediastinum is within normal limits. Lungs and pleural space: Lungs are clear. No sign of infiltrate or mass. No sign of pleural effusion. No pneumothorax. Bones and soft tissues: No significant findings. IMPRESSION: Unremarkable chest. Dictated by: Werner Espinal MD @ 03/26/2019 19:35:58 (Electronically Signed)
--- NOTE | 2019-03-26 19:44 | CT ---
INDICATION: Right lower quadrant pain TECHNIQUE: CT abdomen and pelvis acquired with IV contrast. 100 cc Isovue 370 COMPARISON: None FINDINGS: Lower chest: Unremarkable. Liver: Unremarkable. Spleen: Unremarkable. Pancreas: Unremarkable. Gallbladder and bile ducts: Distended gallbladder with minimally thickened wall. Probable small gallstones. Normal appearing common bile duct. Correlate with right upper quadrant pain. Kidneys: Unremarkable. Adrenal glands: Unremarkable. GI tract: Stool distended cecum and ascending colon.. Appendix is normal. Vascular structures: Unremarkable. Lymph nodes: Unremarkable. Miscellaneous: Unremarkable. No free air or significant free fluid. Pelvic Organs: Unremarkable. Bones: Unremarkable for age. IMPRESSION: The appendix is normal. Distended gallbladder with mild gallbladder wall thickening. Probable small gallstones. Normal common bile duct. Findings worrisome for cholecystitis. Right upper quadrant ultrasound recommended. Stool distended cecum and ascending colon. Dictated by Werner Espinal MD @ 03/26/2019 7:43:40 PM Please note that all CT scans at this facility use dose modulation, iterative reconstruction, and/or weight-based dosing when appropriate to reduce radiation dose to as low as reasonably achievable. Dictated by: Werner Espinal MD @ 03/26/2019 19:43:50 (Electronically Signed)
--- NOTE | 2019-03-26 21:18 | US ---
INDICATION: Abdominal pain. TECHNIQUE: Conventional two-dimensional grayscale ultrasound of the right upper quadrant. COMPARISON: Today`s abdomen/pelvis CT. FINDINGS: Several large stones are demonstrated in the gallbladder neck. The gallbladder wall is borderline thickened at 3 mm. No pericholecystic fluid is evident. The patient is reportedly tender over the gallbladder. No intrahepatic biliary ductal dilation is evident. The common bile duct is not visualized. The liver is normal in size, shape and echogenicity. The pancreas is obscured by gas. The right kidney is unremarkable. The abdominal aorta and inferior vena cava are obscured by gas. IMPRESSION: 1. Cholelithiasis with borderline gallbladder wall thickening and positive Josue`s sign, suggesting early acute cholecystitis 2. Common duct not visualized but intrahepatic ducts not dilated. 3. Pancreas obscured by gas. Dictated by Boni Carney MD @ Mar 26 2019 9:08PM Signed by Dr. Boni Carney @ Mar 26 2019 9:16PM
[2019-03-26] MEDS: Lactated Ringers 1,000 ML IV SCH (22:57)
[2019-03-26] MEDS ORDERED: Ondansetron 4 MG/2 ML SDV IVPUSH PRN (22:58)
[2019-03-26] MEDS ORDERED: Levofloxacin/Dextrose 5%-Water 750 MG in Premix Bag 1 BAG IV SCH (23:00)
[2019-03-26] MEDS: Pantoprazole 40 MG in Sodium Chloride 0.9% 10 ML IV SCH (23:14)
[2019-03-27] MEDS: Morphine 2 MG/ML Syringe IVPUSH PRN ×2 (02:33→08:13)
[2019-03-27] MEDS ORDERED: LORazepam 2 MG/ML SDV IVPUSH ONE (03:26)
[2019-03-27 06:22] LABS: CHLORIDE,CL 99 mmol/L (98-107); SODIUM,NA 137 mmol/L (136-148)
[2019-03-27] MEDS: Lactated Ringers 1,000 ML IV SCH ×2 (08:26→16:25)
--- NOTE | 2019-03-27 10:25 | PCM.SN ---
- Free Text/Narrative Note: pt seen, chart reveiwed, cx dictated, [id number]. 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
--- NOTE | 2019-03-27 10:34 | PCM.CONS ---
H&P History of Present Illness - General Date of Service: 03/27/19 Admit Problem/Dx: Admission Diagnosis/Problem Admission Diagnosis/Problem Cholecystitis - History of Present Illness Initial Comments - Free Text/Narative: 58 y/o male with history of chronic back pain who presented to the ER complaining of epigastric pain and RUQ pain. He stated that pain started yesterday morning and his epigastric pain has improved but now mostly complaining of RUQ pain. Can only take small shallow breaths due to pain. No nausea, vomiting. No radiation to left neck or arm. Denies any dysuria, diarrhea , constipation, blood in stool. He states he drinks occasionally. Last drink was on Thursday night. States he drank to mix drinks. No history of withdrawal seizures. Smokes daily. Imaging shows some mild gallbladder distention, no obstructing stone. Chest Pain Score (Numeric/FACES): 0 Abdominal Pain Score (Numeric/FACES): 9 - Related Data Allergies/Adverse Reactions: Allergies Allergy/AdvReac Type Severity Reaction Status Date / Time No Known Allergies Allergy Verified 03/27/19 00:01 Home Medications: Home Meds Hydrocodone/Acetaminophen [Hydrocodon-Acetaminophn 10-325] 10 - 325 mg PO Q6H [History] Methadone 10 mg PO .NOON 05/13/18 [History] Testosterone Cypionate [Depo-Testosterone] 2,000 mg IM ASDIRECTED 05/13/18 [ History] FLUoxetine [PROzac] 10 mg PO DAILY 03/27/19 [History] Methadone 20 mg PO BID 03/27/19 [History] Past Medical History HEENT History: Reports: Impaired Vision Other HEENT History: reading glasses Cardiovascular History: Reports: None Respiratory History: Reports: None Gastrointestinal History: Reports: Cholelithiasis, GERD, Other (See Below) Other Gastrointestinal History: 2 bleeding ulcers age 13 Genitourinary History: Reports: None Musculoskeletal History: Reports: Back Pain, Chronic Other Musculoskeletal History: sciatica Neurological History: Reports: None Psychiatric History: Reports: None Endocrine/Metabolic History: Reports: None Hematologic History: Reports: None Immunologic History: Reports: None Oncologic (Cancer) History: Reports: None Dermatologic History: Reports: None - Infectious Disease History Infectious Disease History: Reports: Chicken Pox - Past Surgical History Neurological Surgical History: Reports: Lumbar Spine Musculoskeletal Surgical History: Reports: Other (See Below) Other Musculoskeletal Surgeries/Procedures:: 2 back surgeries, arm surgery Social & Family History - Family History Family Medical History: Noncontributory - Tobacco Use Smoking Status *Q: Current Every Day Smoker Years of Tobacco use: 30 Packs/Tins Daily: 1 - Caffeine Use Caffeine Use: Reports: Coffee, Energy Drinks, Soda Caffeine Use Comment: "lots of coffee" - Alcohol Use Days Per Week of Alcohol Use: 7 Number of Drinks Per Day: 3 Total Drinks Per Week: 21 - Recreational Drug Use Recreational Drug Use: Yes Drug Use in Last 12 Months: No Recreational Drug Type: Reports: Marijuana/Hashish Recreational Drug Use Frequency: Not Used In Over 1 Year - Living Situation & Occupation Living situation: Reports: , with Family Occupation: Employed H&P Review of Systems - Review of Systems: Review Of Systems: ROS reveals no pertinent complaints other than HPI. Exam - Exam Exam: See Below - Vital Signs Vital Signs: Last Vital Signs Temp 37.7 C 03/27/19 07:40 Pulse 104 H 03/27/19 07:40 Resp 18 03/27/19 07:40 BP 148/86 H 03/27/19 07:40 Pulse Ox 93 L 03/27/19 07:40 Weight: 69.49 kg - Exam General: Alert, Oriented, Cooperative, Mild Distress Lungs: Clear to Auscultation, Normal Respiratory Effort Cardiovascular: Regular Rate, Regular Rhythm GI/Abdominal Exam: Other (RUQ pain, taking shallow breaths) Extremities: Normal Inspection, No Pedal Edema Skin: Warm, Moist - Patient Data Lab Results Last 24 hrs: Laboratory Results - last 24 hr 03/26/19 03/26/19 03/26/19 Range/Units 17:55 17:55 17:55 WBC 16.23 H (4.0-11.0) K/uL RBC 4.89 (4.50-5.90) M/uL Hgb 14.9 (13.0-17.0) g/dL Hct 45.1 (38.0-50.0) % MCV 92.2 (80.0-98.0) fL MCH 30.5 (27.0-32.0) pg MCHC 33.0 (31.0-37.0) g/dL RDW Std Deviation 44.9 (28.0-62.0) fl RDW Coeff of Abdirizak 14 (11.0-15.0) % Plt Count 343 (150-400) K/uL MPV 9.00 (7.40-12.00) fL Neut % (Auto) 88.1 H (48.0-80.0) % Lymph % (Auto) 5.6 L (16.0-40.0) % [place] % (Auto) 5.9 (0.0-15.0) % Eos % (Auto) 0.3 (0.0-7.0) % Baso % (Auto) 0.1 (0.0-1.5) % Neut # (Auto) 14.3 H (1.4-5.7) K/uL Lymph # (Auto) 0.9 (0.6-2.4) K/uL [place] # (Auto) 1.0 H (0.0-0.8) K/uL Eos # (Auto) 0.1 (0.0-0.7) K/uL Baso # (Auto) 0.0 (0.0-0.1) K/uL INR 0.95 Sodium 141 (136-148) mmol/L Potassium 3.7 (3.5-5.1) mmol/L Chloride 100 (98-107) mmol/L Carbon Dioxide 28.1 (21.0-32.0) mmol/L BUN 9 (7.0-18.0) mg/dL Creatinine 0.8 (0.8-1.3) mg/dL Est Cr Clr Drug Dosing 91.93 mL/min Estimated GFR (MDRD) > 60.0 ml/min Glucose 104 (74-106) mg/dL Calcium 9.4 (8.5-10.1) mg/dL Total Bilirubin 0.3 (0.2-1.0) mg/dL AST 13 L (15-37) IU/L ALT 17 (14-63) IU/L Alkaline Phosphatase 79 (46-116) U/L Troponin I < 0.050 (0.000-0.056) ng/mL Total Protein 7.2 (6.4-8.2) g/dL Albumin 4.0 (3.4-5.0) g/dL Globulin 3.2 (2.6-4.0) g/dL Albumin/Globulin Ratio 1.3 (0.9-1.6) Amylase 47 (25-115) U/L Lipase 59 L (73-393) U/L Urine Color Urine Appearance Urine pH (5.0-8.0) Ur Specific [place] (1.001-1.035) Urine Protein (NEGATIVE) mg/dL Urine Glucose (UA) (NEGATIVE) mg/dL Urine Ketones (NEGATIVE) mg/dL Urine Occult Blood (NEGATIVE) Urine Nitrite (NEGATIVE) Urine Bilirubin (NEGATIVE) Urine Urobilinogen (<2.0) EU/dL Ur Leukocyte Esterase (NEGATIVE) Urine RBC (0-2/HPF) Urine WBC (0-5/HPF) Ur Epithelial Cells (NONE-FEW) Urine Bacteria (NEGATIVE) 03/26/19 03/27/19 03/27/19 Range/Units 22:53 05:32 05:32 WBC 20.75 H (4.0-11.0) K/uL RBC 4.96 (4.50-5.90) M/uL Hgb 15.5 (13.0-17.0) g/dL Hct 45.5 (38.0-50.0) % MCV 91.7 (80.0-98.0) fL MCH 31.3 (27.0-32.0) pg MCHC 34.1 (31.0-37.0) g/dL RDW Std Deviation 45.2 (28.0-62.0) fl RDW Coeff of Abdirizak 14 (11.0-15.0) % Plt Count 322 (150-400) K/uL MPV 9.40 (7.40-12.00) fL Neut % (Auto) 89.9 H (48.0-80.0) % Lymph % (Auto) 3.2 L (16.0-40.0) % [place] % (Auto) 6.8 (0.0-15.0) % Eos % (Auto) 0.0 (0.0-7.0) % Baso % (Auto) 0.1 (0.0-1.5) % Neut # (Auto) 18.7 H (1.4-5.7) K/uL Lymph # (Auto) 0.7 (0.6-2.4) K/uL [place] # (Auto) 1.4 H (0.0-0.8) K/uL Eos # (Auto) 0.0 (0.0-0.7) K/uL Baso # (Auto) 0.0 (0.0-0.1) K/uL INR Sodium 137 (136-148) mmol/L Potassium 4.4 (3.5-5.1) mmol/L Chloride 99 (98-107) mmol/L Carbon Dioxide 29.3 (21.0-32.0) mmol/L BUN 8 (7.0-18.0) mg/dL Creatinine 0.8 (0.8-1.3) mg/dL Est Cr Clr Drug Dosing 91.93 mL/min Estimated GFR (MDRD) > 60.0 ml/min Glucose 122 H (74-106) mg/dL Calcium 9.4 (8.5-10.1) mg/dL Total Bilirubin 0.7 (0.2-1.0) mg/dL AST 11 L (15-37) IU/L ALT 15 (14-63) IU/L Alkaline Phosphatase 72 (46-116) U/L Troponin I (0.000-0.056) ng/mL Total Protein 7.0 (6.4-8.2) g/dL Albumin 3.7 (3.4-5.0) g/dL Globulin 3.3 (2.6-4.0) g/dL Albumin/Globulin Ratio 1.1 (0.9-1.6) Amylase 43 (25-115) U/L Lipase 127 (73-393) U/L Urine Color YELLOW Urine Appearance CLEAR Urine pH 7.0 (5.0-8.0) Ur Specific [place] 1.010 (1.001-1.035) Urine Protein NEGATIVE (NEGATIVE) mg/dL Urine Glucose (UA) NEGATIVE (NEGATIVE) mg/dL Urine Ketones >=80 (NEGATIVE) mg/dL Urine Occult Blood TRACE-INTACT H (NEGATIVE) Urine Nitrite NEGATIVE (NEGATIVE) Urine Bilirubin NEGATIVE (NEGATIVE) Urine Urobilinogen 1.0 (<2.0) EU/dL Ur Leukocyte Esterase TRACE H (NEGATIVE) Urine RBC 0-2 (0-2/HPF) Urine WBC 1-4 (0-5/HPF) Ur Epithelial Cells RARE (NONE-FEW) Urine Bacteria FEW (NEGATIVE) Result Diagrams: 03/27/19 05:32 03/27/19 05:32 Consult PN Assessment/Plan Procedures: Procedures ASSAY OF AMYLASE (05/13/18) ASSAY OF FREE TESTOSTERONE (10/16/16) ASSAY OF FREE THYROXINE (01/29/16) ASSAY OF LIPASE (05/13/18) ASSAY OF TOTAL TESTOSTERONE (10/16/16) ASSAY OF TROPONIN QUANT (05/13/18) ASSAY THYROID STIM HORMONE (03/16/18) COMPLETE CBC W/AUTO DIFF WBC (05/13/18) COMPREHEN METABOLIC PANEL (05/13/18) CORTISOL FREE (04/04/16) DRUG TEST PRSMV DIR OPT OBS (03/16/18) ELECTROCARDIOGRAM TRACING (05/13/18) EMERGENCY DEPT VISIT (05/13/18) FREE ASSAY (FT-3) (01/29/16) HYDRATE IV INFUSION ADD-ON (05/13/18) LIPID PANEL (03/16/18) METABOLIC PANEL TOTAL CA (05/13/18) PROTHROMBIN TIME (05/13/18) ROUTINE VENIPUNCTURE (05/13/18) THER/PROPH/DIAG INJ IV PUSH (05/13/18) TOTAL CORTISOL (04/01/16) TX/PRO/DX INJ NEW DRUG ADDON (05/13/18) URINALYSIS AUTO W/SCOPE (05/13/18) VIT D 1 25-DIHYDROXY (01/18/14) X-RAY EXAM CHEST 1 VIEW (05/13/18) Problem List Initiated/Reviewed/Updated: Yes Plan: 58 y/o male presenting with RUQ pain, leukocytosis admitted for suspected acute cholecystitis. Currently, patient is in pain, taking shallow breaths due to RUQ pain. Imaging shows mild gallbladder thickening and positive Josue's sign suggesting acute cholecystis. Recommendations: I have reviewed the patient's outpatient pain medication regimen and he has been taking methadone 20 mg in the morning, 10 mg midday and 20 mg at night. His PCP is Dr. Viveros. In addition, [place] 10 mg PO PRN for breath through pain. His epigastric pain seems to be more gastritis than cardiac in etiology since initial troponin was negative and patient's history of alcohol intake. May consider GI cocktail and see if that helps. I would recommend continuing his home pain regimen and see if that helps some of his symptoms. I would recommend close monitoring with serial abdominal exams for suspected acute cholecystitis.
[2019-03-27] MEDS: Methadone 10 MG Tab PO SCH ×3 (10:47→20:35)
[2019-03-27] MEDS ORDERED: cefOXitin 1 GM in Premix Bag 1 BAG IV SCH (11:00)
[2019-03-27] MEDS: Morphine 4 MG/ML Syringe IV PRN ×3 (11:33→21:42)
[2019-03-27] MEDS: LORazepam 2 MG/ML SDV IVPUSH PRN ×2 (11:42→18:02)
[2019-03-27] MEDS: Piperacillin/Tazobactam 3.375 GM in Sodium Chloride 0.9% 50 ML IV SCH ×3 (11:44→22:53)
--- NOTE | 2019-03-27 12:20 | HP ---
DATE OF : 1960 PRIMARY CARE PHYSICIAN: Damir Viveros M.D. HISTORY OF PRESENT ILLNESS: The patient is a 58-year-old gentleman who had a spine injury, fell down from a roof more than 20 years ago and subsequently has been taking methadone for the last 18 years, on a high dose, something like a 10 mg 5 times a day, and testosterone per a pain doctor's recommendation for 2 years and complains of a 24-hour history of chest and abdominal pain. Sought help in the emergency room and complained about 8/10 on the chest pain and 3/10 on the abdomen. On subsequent workup, CAT scan and ultrasound showing to have gallstone, and the patient was admitted for further management. The patient denied bright red blood per rectum or black tarry stool or Pepsi-Cola urination or dysuria or jaundice. The patient has been admitted 1 year ago in April [address] Schmidt and recommended to have a cardiology workup regarding his pain. The patient said he did not do it. Currently, he said the pain is similar to last year, and looking at old chart, the patient seemed to have this chest pain for at least 3 to 4 years. ALLERGIES: Please refer to nursing for details. MEDICATIONS: Please refer to nursing for details. PAST MEDICAL HISTORY: Denied diabetes, NC, CVA. PAST SURGICAL HISTORY: The patient had two back surgeries and one arm surgery and no abdominal surgery. SOCIAL HISTORY: The patient is pretty into smoking and also uses electronic cigarette, and alcohol per ER record, the patient has 1 to 2 drinks every day. FAMILY HISTORY: Noncontributory. REVIEW OF SYSTEMS: Same as history of present illness. PHYSICAL EXAMINATION: GENERAL: The patient is complaining about pain. HEENT: Normocephalic and atraumatic. Sclerae anicteric. LUNGS: Clear to auscultation. HEART: Regular rate and rhythm. ABDOMEN: Soft, nondistended. No pulsating, tender midline abdominal structure. No surgical scar. Tender in the right upper quadrant. No rebound tenderness. LABORATORY DATA: Upon consultation, white count is 20.75, H and H are 15.5 and, and platelets 322. INR is 0.95. Potassium 4.4, BUN 8, creatinine is 0.8, glucose is 122. Total bilirubin is 0.7, AST and ALT are 11 and 15, alkaline phosphatase is 72. Troponin is under 0.05. Albumin is 3.7. Triglyceride is 92, cholesterol is 201. Amylase is 43 and lipase 127. Total testosterone in 2017 was 178, which is low. Cortisol in 2016 is 18.6. UA yesterday with some blood in the urine, and the patient had calcium crystal, that was 1 year ago, rbc is 0 to 2, wbc is 1 to 4, urine bacteria a few yesterday. Salivary cortisol is fine. Positive methadone 1 year ago, toxicology. IMPRESSION: Right upper quadrant pain with almost maximum use of methadone. The patient is taking either 10mg x5 a day or 20mg x3 a day, and with testosterone injection and elevated cholesterol and smoking and electronic cigarettes, the patient is at high risk for cardiovascular situation and also heavy drink, which the patient denied. We will get a medical consult to assess the pain issue, number one, and also we will get on the deep swing bed to see whether there is any cardiac issue at this stage. Troponin is negative and ultrasound does not have pericholecystetic fluid shows some stone. We will continue IV Levaquin, and having a discussion with the hospitalist, the patient may be better off to continue his methadone than any other narcotic. I have some concern about his using large amount methadone for over 18 years. It is going to be very difficult to manage what is real pain and what is gallbladder pain. Had long discussion with patient, offered him for transfer to a facility with pain doctor, the patient declined at this stage. PLAN: N.p.o., ice chips, IV antibiotic. Repeat blood work and Pain Management consult as well as a cardiac consult. CHYNA / MARSHALL /[phone] ANITA
--- NOTE | 2019-03-27 19:43 | PCM.SN ---
- Free Text/Narrative Note: switched abx to zosyn; add morphine/home dose methadon for pain; tentatively schedule for lap arthur tomorrow after 24 hrs of iv abx; repeat lab in the morning, as well as cardiology consult; troponin has been negative.
[2019-03-27] MEDS: Folic Acid 50 MG/10 ML MDV SUBCUT SCH (22:45)
[2019-03-27] MEDS: Pantoprazole 40 MG in Sodium Chloride 0.9% 10 ML IV SCH (22:47)
[2019-03-27] MEDS: Thiamine 200 MG/2 ML MDV IV SCH (22:49)
[2019-03-28] MEDS: Lactated Ringers 1,000 ML IV SCH ×4 (00:56→20:39)
[2019-03-28] MEDS: Piperacillin/Tazobactam 3.375 GM in Sodium Chloride 0.9% 50 ML IV SCH ×4 (04:22→20:34)
[2019-03-28] MEDS ORDERED: Lactated Ringers 1,000 ML IV SCH (05:00)
[2019-03-28 06:10] LABS: CHLORIDE,CL 99 mmol/L (98-107); SODIUM,NA 136 mmol/L (136-148)
[2019-03-28] MEDS: Morphine 4 MG/ML Syringe IV PRN (07:47)
[2019-03-28] MEDS: Methadone 10 MG Tab PO SCH ×4 (08:53→20:34)
[2019-03-28] MEDS: Thiamine 200 MG/2 ML MDV IV SCH (08:55)
[2019-03-28] MEDS: Folic Acid 50 MG/10 ML MDV SUBCUT SCH (09:00)
[2019-03-28] MEDS ORDERED: Octyl 2-Cyanoacrylate 1 Tube ONE (09:27)
[2019-03-28] MEDS ORDERED: Bupivacaine 25%/EPINEPHrine/PF 30 ML ONE (09:27)
--- NOTE | 2019-03-28 09:34 | PCM.PREANE ---
Preanesthetic Assessment - Anesthesia/Transfusion/Family Hx Anesthesia History: Prior Anesthesia Without Reaction Family History of Anesthesia Reaction: No Transfusion History: No Prior Transfusion(s) - Review of Systems General: No Symptoms Pulmonary: No Symptoms Cardiovascular: No Symptoms Gastrointestinal: Abdominal Pain Neurological: No Symptoms Other: Reports: Anxiety - Physical Assessment NPO Status Date: 03/27/19 O2 Sat by Pulse Oximetry: 91 Respiratory Rate: 18 Blood Pressure: 154/105 Vital Signs: Last Vital Signs Temp 99.0 F 03/28/19 07:40 Pulse 120 H 03/28/19 07:40 Resp 18 03/28/19 07:40 BP 136/88 03/28/19 07:40 Pulse Ox 91 L 03/28/19 07:40 Height: 5 ft 6 in Weight: 69.49 kg ASA Class: 3 Mental Status: Alert & Oriented x3 Airway Class: Mallampati = 2 Dentition: Reports: Normal Dentition - Lab Values: Laboratory Last Values WBC 24.80 K/uL (4.0-11.0) H 03/28/19 05:15 RBC 4.51 M/uL (4.50-5.90) 03/28/19 05:15 Hgb 14.2 g/dL (13.0-17.0) 03/28/19 05:15 Hct 41.7 % (38.0-50.0) 03/28/19 05:15 MCV 92.5 fL (80.0-98.0) 03/28/19 05:15 MCH 31.5 pg (27.0-32.0) 03/28/19 05:15 MCHC 34.1 g/dL (31.0-37.0) 03/28/19 05:15 RDW Std Deviation 46.0 fl (28.0-62.0) 03/28/19 05:15 RDW Coeff of Abdirizak 14 % (11.0-15.0) 03/28/19 05:15 Plt Count 303 K/uL (150-400) 03/28/19 05:15 MPV 10.10 fL (7.40-12.00) 03/28/19 05:15 Neut % (Auto) 93.4 % (48.0-80.0) H 03/28/19 05:15 Lymph % (Auto) 2.6 % (16.0-40.0) L 03/28/19 05:15 [place] % (Auto) 3.9 % (0.0-15.0) 03/28/19 05:15 Eos % (Auto) 0.0 % (0.0-7.0) 03/28/19 05:15 Baso % (Auto) 0.1 % (0.0-1.5) 03/28/19 05:15 Neut # (Auto) 23.2 K/uL (1.4-5.7) H 03/28/19 05:15 Lymph # (Auto) 0.7 K/uL (0.6-2.4) 03/28/19 05:15 [place] # (Auto) 1.0 K/uL (0.0-0.8) H 03/28/19 05:15 Eos # (Auto) 0.0 K/uL (0.0-0.7) 03/28/19 05:15 Baso # (Auto) 0.0 K/uL (0.0-0.1) 03/28/19 05:15 INR 0.95 03/26/19 17:55 Sodium 136 mmol/L (136-148) 03/28/19 05:15 Potassium 4.2 mmol/L (3.5-5.1) 03/28/19 05:15 Chloride 99 mmol/L (98-107) 03/28/19 05:15 Carbon Dioxide 27.0 mmol/L (21.0-32.0) 03/28/19 05:15 BUN 11 mg/dL (7.0-18.0) 03/28/19 05:15 Creatinine 0.8 mg/dL (0.8-1.3) 03/28/19 05:15 Est Cr Clr Drug Dosing 91.93 mL/min 03/28/19 05:15 Estimated GFR (MDRD) > 60.0 ml/min 03/28/19 05:15 Glucose 97 mg/dL (74-106) 03/28/19 05:15 Calcium 9.2 mg/dL (8.5-10.1) 03/28/19 05:15 Total Bilirubin 1.0 mg/dL (0.2-1.0) 03/28/19 05:15 AST 15 IU/L (15-37) 03/28/19 05:15 ALT 13 IU/L (14-63) L 03/28/19 05:15 Alkaline Phosphatase 66 U/L (46-116) 03/28/19 05:15 Troponin I < 0.050 ng/mL (0.000-0.056) 03/27/19 22:47 Total Protein 6.4 g/dL (6.4-8.2) 03/28/19 05:15 Albumin 2.9 g/dL (3.4-5.0) L 03/28/19 05:15 Globulin 3.5 g/dL (2.6-4.0) 03/28/19 05:15 Albumin/Globulin Ratio 0.8 (0.9-1.6) L 03/28/19 05:15 Amylase 43 U/L (25-115) 03/27/19 05:32 Lipase 127 U/L (73-393) 03/27/19 05:32 Urine Color YELLOW 03/26/19 22:53 Urine Appearance CLEAR 03/26/19 22:53 Urine pH 7.0 (5.0-8.0) 03/26/19 22:53 Ur Specific [place] 1.010 (1.001-1.035) 03/26/19 22:53 Urine Protein NEGATIVE mg/dL (NEGATIVE) 03/26/19 22:53 Urine Glucose (UA) NEGATIVE mg/dL (NEGATIVE) 03/26/19 22:53 Urine Ketones >=80 mg/dL (NEGATIVE) 03/26/19 22:53 Urine Occult Blood TRACE-INTACT (NEGATIVE) H 03/26/19 22:53 Urine Nitrite NEGATIVE (NEGATIVE) 03/26/19 22:53 Urine Bilirubin NEGATIVE (NEGATIVE) 03/26/19 22:53 Urine Urobilinogen 1.0 EU/dL (<2.0) 03/26/19 22:53 Ur Leukocyte Esterase TRACE (NEGATIVE) H 03/26/19 22:53 Urine RBC 0-2 (0-2/HPF) 03/26/19 22:53 Urine WBC 1-4 (0-5/HPF) 03/26/19 22:53 Ur Epithelial Cells RARE (NONE-FEW) 03/26/19 22:53 Urine Bacteria FEW (NEGATIVE) 03/26/19 22:53 - Allergies Allergies/Adverse Reactions: Allergies Allergy/AdvReac Type Severity Reaction Status Date / Time No Known Allergies Allergy Verified 03/27/19 00:01 - Blood Blood Available: No - Anesthesia Plan Pre-Op Medication Ordered: None - Acknowledgements Anesthesia Type Planned: General Anesthesia Pt an Appropriate Candidate for the Planned Anesthesia: Yes Alternatives and Risks of Anesthesia Discussed w Pt/Guardian: Yes Pt/Guardian Understands and Agrees with Anesthesia Plan: Yes Additional Comments: anesth prob list: chronic methadone use x 18 years - dosed 20, 10, 20 tid- poor pain controll while in hospital, was put on methadone for chronic LBP, smoker, gerd, prob acute cholecystitis which hasn't quieted down with 2 days of antibiotics. PLAN: GET, post op analgesic plan given to Dr KERN and Dr Baugh, michaelvinteri higher dose of daily methadone given q6 hours, NSAID, iv tulenol, morphine for breakthrough pain, and consideration of intermittant boluses of ketamine. PreAnesthesia Questionnaire HEENT History: Reports: Impaired Vision Other HEENT History: reading glasses Cardiovascular History: Reports: None Respiratory History: Reports: None Gastrointestinal History: Reports: Cholelithiasis, GERD, Other (See Below) Other Gastrointestinal History: 2 bleeding ulcers age 13 Genitourinary History: Reports: None Musculoskeletal History: Reports: Back Pain, Chronic Other Musculoskeletal History: sciatica Neurological History: Reports: None Psychiatric History: Reports: None Endocrine/Metabolic History: Reports: None Hematologic History: Reports: None Immunologic History: Reports: None Oncologic (Cancer) History: Reports: None Dermatologic History: Reports: None - Infectious Disease History Infectious Disease History: Reports: Chicken Pox - Past Surgical History Neurological Surgical History: Reports: Lumbar Spine Musculoskeletal Surgical History: Reports: Other (See Below) Other Musculoskeletal Surgeries/Procedures:: 2 back surgeries, arm surgery - SUBSTANCE USE Smoking Status *Q: Current Every Day Smoker Tobacco Use Within Last Twelve Months: Cigarettes Days Per Week of Alcohol Use: 7 Number of Drinks Per Day: 3 Total Drinks Per Week: 21 Recreational Drug Use History: Yes Recreational Drug Type: Reports: Marijuana/Hashish - HOME MEDS Home Medications: Home Meds Hydrocodone/Acetaminophen [Hydrocodon-Acetaminophn 10-325] 10 - 325 mg PO Q6H [History] Methadone 10 mg PO DAILY@1200 05/13/18 [History] Testosterone Cypionate [Depo-Testosterone] 2,000 mg IM ASDIRECTED 05/13/18 [ History] FLUoxetine [PROzac] 10 mg PO DAILY 03/27/19 [History] Methadone 20 mg PO BID 03/27/19 [History] - CURRENT (IN HOUSE) MEDS Current Meds: Current Medications Folic Acid (Folic Acid) 1 mg SUBCUT DAILY [facility] Last Admin: 03/28/19 09:00 Dose: 1 mg Lactated Ringer's (Ringers, Lactated) 1,000 mls @ 125 mls/hr IV ASDIRECTED [facility] Last Admin: 03/28/19 07:40 Dose: 125 mls/hr Pantoprazole Sodium 40 mg/ (Sodium Chloride) 10 mls @ 300 mls/hr IV Q24H [facility] Last Admin: 03/27/19 22:47 Dose: 300 mls/hr Piperacillin Sod/Tazobactam (Sod 3.375 gm/ Sodium Chloride) 50 mls @ 100 mls/ hr IV Q6H [facility] Last Admin: 03/28/19 04:22 Dose: 100 mls/hr Lorazepam (Ativan) 1 mg IVPUSH Q6H PRN PRN Reason: Anxiety Last Admin: 03/27/19 18:02 Dose: 1 mg Methadone HCl (Methadone) 20 mg PO BID [facility] Last Admin: 03/28/19 08:53 Dose: 20 mg Methadone HCl (Methadone) 10 mg PO DAILY@1200 [facility] Last Admin: 03/27/19 14:46 Dose: 10 mg Morphine Sulfate (Morphine) 4 mg IV Q3H PRN PRN Reason: PAIN Last Admin: 03/28/19 07:47 Dose: 4 mg Ondansetron HCl (Zofran) 4 mg IVPUSH Q8H PRN PRN Reason: Nausea/Vomiting Thiamine HCl (Vitamin B-1) 100 mg IV DAILY [facility] Last Admin: 03/28/19 08:55 Dose: 100 mg Discontinued Medications Aspirin (Aspirin) 324 mg PO ONETIME ONE Stop: 03/26/19 17:49 Last Admin: 03/26/19 17:57 Dose: 324 mg Sodium Chloride (Normal Saline) 1,000 mls @ 999 mls/hr IV BOLUS ONE Stop: 03/26/19 19:11 Last Admin: 03/26/19 18:10 Dose: 999 mls/hr Levofloxacin/Dextrose 750 mg/ (Premix) 150 mls @ 100 mls/hr IV Q24H [facility] Last Admin: 03/26/19 23:16 Dose: 100 mls/hr Cefoxitin Sodium 1 gm/ Premix 50 mls @ 100 mls/hr IV Q6H [facility] Stop: 04/01/19 11:01 Last Admin: 03/27/19 11:08 Dose: 100 mls/hr Lactated Ringer's (Ringers, Lactated) 1,000 mls @ 125 mls/hr IV ASDIRECTED [facility] Iopamidol (Isovue-370 (76%)) 100 ml IVPUSH ONETIME ONE Stop: 03/26/19 19:01 Last Admin: 03/26/19 19:01 Dose: 100 ml Lorazepam (Ativan) 0.5 mg IVPUSH ONETIME ONE Stop: 03/27/19 03:27 Last Admin: 03/27/19 03:37 Dose: 0.5 mg Morphine Sulfate (Morphine) 2 mg IVPUSH ONETIME ONE Stop: 03/26/19 18:29 Last Admin: 03/26/19 18:34 Dose: 2 mg Morphine Sulfate (Morphine) Confirm Administered Dose 2 mg .ROUTE .STK-MED ONE Stop: 03/26/19 18:32 Last Admin: 03/26/19 18:53 Dose: Not Given Morphine Sulfate (Morphine) 2 mg IVPUSH ONETIME ONE Stop: 03/26/19 20:46 Last Admin: 03/26/19 22:31 Dose: 2 mg Morphine Sulfate (Morphine) 3 mg IVPUSH Q4H PRN PRN Reason: Pain Last Admin: 03/27/19 08:13 Dose: 3 mg Nitroglycerin (Nitrostat) 0.4 mg SL Q5M PRN PRN Reason: Chest Pain Stop: 03/27/19 17:44 Last Admin: 03/26/19 18:10 Dose: 0.4 mg
[2019-03-28] MEDS ORDERED: Midazolam 1 MG/ML 2 ML SDV ONE (09:50)
[2019-03-28] MEDS ORDERED: Propofol 200 MG/20 ML SDV ONE (09:50)
[2019-03-28] MEDS ORDERED: fentaNYL 250 MCG/5 ML SDV ONE ×2 (09:50→11:33)
[2019-03-28] MEDS ORDERED: Lidocaine 2% 5 ML SDV ONE ×2 (09:53→12:26)
[2019-03-28] MEDS ORDERED: Rocuronium 100 MG/10 ML Syringe ONE (09:53)
[2019-03-28] MEDS ORDERED: Ketamine 500 mg/10 ML MDV ONE (09:59)
[2019-03-28] MEDS ORDERED: Sodium Chloride 0.9% 20 ML ONE (10:01)
[2019-03-28] MEDS ORDERED: Dexamethasone 4 MG/ML 5 ML MDV ONE (10:11)
[2019-03-28] MEDS: LORazepam 2 MG/ML SDV IVPUSH PRN (10:18)
--- NOTE | 2019-03-28 10:34 | PCM.CONSN ---
- General Info Date of Service: 03/28/19 Subjective Update: Afebrile overnight, however, with increased WBC. Patient complaining of diffuse abdominal pain this morning. - Patient Data Vitals - Most Recent: Last Vital Signs Temp 37.2 C 03/28/19 07:40 Pulse 120 H 03/28/19 07:40 Resp 18 03/28/19 09:34 BP 154/105 H 03/28/19 09:34 Pulse Ox 91 L 03/28/19 09:34 Weight - Most Recent: 69.49 kg I&O - Last 24 Hours: Intake & Output 03/27/19 03/28/19 03/28/19 22:59 06:59 14:59 Intake Total 1990 1460 345 Output Total 400 Balance 1990 1060 345 Lab Results Last 24 Hours: Laboratory Results - last 24 hr 03/27/19 03/27/19 03/27/19 Range/Units 11:11 17:06 22:47 WBC (4.0-11.0) K/uL RBC (4.50-5.90) M/uL Hgb (13.0-17.0) g/dL Hct (38.0-50.0) % MCV (80.0-98.0) fL MCH (27.0-32.0) pg MCHC (31.0-37.0) g/dL RDW Std Deviation (28.0-62.0) fl RDW Coeff of Abdirizak (11.0-15.0) % Plt Count (150-400) K/uL MPV (7.40-12.00) fL Neut % (Auto) (48.0-80.0) % Lymph % (Auto) (16.0-40.0) % [place] % (Auto) (0.0-15.0) % Eos % (Auto) (0.0-7.0) % Baso % (Auto) (0.0-1.5) % Neut # (Auto) (1.4-5.7) K/uL Lymph # (Auto) (0.6-2.4) K/uL [place] # (Auto) (0.0-0.8) K/uL Eos # (Auto) (0.0-0.7) K/uL Baso # (Auto) (0.0-0.1) K/uL Sodium (136-148) mmol/L Potassium (3.5-5.1) mmol/L Chloride (98-107) mmol/L Carbon Dioxide (21.0-32.0) mmol/L BUN (7.0-18.0) mg/dL Creatinine (0.8-1.3) mg/dL Est Cr Clr Drug Dosing mL/min Estimated GFR (MDRD) ml/min Glucose (74-106) mg/dL Calcium (8.5-10.1) mg/dL Total Bilirubin (0.2-1.0) mg/dL AST (15-37) IU/L ALT (14-63) IU/L Alkaline Phosphatase (46-116) U/L Troponin I < 0.050 < 0.050 < 0.050 (0.000-0.056) ng/mL Total Protein (6.4-8.2) g/dL Albumin (3.4-5.0) g/dL Globulin (2.6-4.0) g/dL Albumin/Globulin Ratio (0.9-1.6) 03/28/19 03/28/19 Range/Units 05:15 05:15 WBC 24.80 H (4.0-11.0) K/uL RBC 4.51 (4.50-5.90) M/uL Hgb 14.2 (13.0-17.0) g/dL Hct 41.7 (38.0-50.0) % MCV 92.5 (80.0-98.0) fL MCH 31.5 (27.0-32.0) pg MCHC 34.1 (31.0-37.0) g/dL RDW Std Deviation 46.0 (28.0-62.0) fl RDW Coeff of Abdirizak 14 (11.0-15.0) % Plt Count 303 (150-400) K/uL MPV 10.10 (7.40-12.00) fL Neut % (Auto) 93.4 H (48.0-80.0) % Lymph % (Auto) 2.6 L (16.0-40.0) % [place] % (Auto) 3.9 (0.0-15.0) % Eos % (Auto) 0.0 (0.0-7.0) % Baso % (Auto) 0.1 (0.0-1.5) % Neut # (Auto) 23.2 H (1.4-5.7) K/uL Lymph # (Auto) 0.7 (0.6-2.4) K/uL [place] # (Auto) 1.0 H (0.0-0.8) K/uL Eos # (Auto) 0.0 (0.0-0.7) K/uL Baso # (Auto) 0.0 (0.0-0.1) K/uL Sodium 136 (136-148) mmol/L Potassium 4.2 (3.5-5.1) mmol/L Chloride 99 (98-107) mmol/L Carbon Dioxide 27.0 (21.0-32.0) mmol/L BUN 11 (7.0-18.0) mg/dL Creatinine 0.8 (0.8-1.3) mg/dL Est Cr Clr Drug Dosing 91.93 mL/min Estimated GFR (MDRD) > 60.0 ml/min Glucose 97 (74-106) mg/dL Calcium 9.2 (8.5-10.1) mg/dL Total Bilirubin 1.0 (0.2-1.0) mg/dL AST 15 (15-37) IU/L ALT 13 L (14-63) IU/L Alkaline Phosphatase 66 (46-116) U/L Troponin I (0.000-0.056) ng/mL Total Protein 6.4 (6.4-8.2) g/dL Albumin 2.9 L (3.4-5.0) g/dL Globulin 3.5 (2.6-4.0) g/dL Albumin/Globulin Ratio 0.8 L (0.9-1.6) Med Orders - Current: Current Medications Folic Acid (Folic Acid) 1 mg SUBCUT DAILY [facility] Last Admin: 03/28/19 09:00 Dose: 1 mg Lactated Ringer's (Ringers, Lactated) 1,000 mls @ 125 mls/hr IV ASDIRECTED [facility] Last Admin: 03/28/19 07:40 Dose: 125 mls/hr Pantoprazole Sodium 40 mg/ (Sodium Chloride) 10 mls @ 300 mls/hr IV Q24H [facility] Last Admin: 03/27/19 22:47 Dose: 300 mls/hr Piperacillin Sod/Tazobactam (Sod 3.375 gm/ Sodium Chloride) 50 mls @ 100 mls/ hr IV Q6H [facility] Last Admin: 03/28/19 04:22 Dose: 100 mls/hr Lorazepam (Ativan) 1 mg IVPUSH Q6H PRN PRN Reason: Anxiety Last Admin: 03/28/19 10:18 Dose: 1 mg Methadone HCl (Methadone) 20 mg PO BID [facility] Last Admin: 03/28/19 08:53 Dose: 20 mg Methadone HCl (Methadone) 10 mg PO DAILY@1200 [facility] Last Admin: 03/27/19 14:46 Dose: 10 mg Morphine Sulfate (Morphine) 4 mg IV Q3H PRN PRN Reason: PAIN Last Admin: 03/28/19 07:47 Dose: 4 mg Ondansetron HCl (Zofran) 4 mg IVPUSH Q8H PRN PRN Reason: Nausea/Vomiting Thiamine HCl (Vitamin B-1) 100 mg IV DAILY [facility] Last Admin: 03/28/19 08:55 Dose: 100 mg Discontinued Medications Aspirin (Aspirin) 324 mg PO ONETIME ONE Stop: 03/26/19 17:49 Last Admin: 03/26/19 17:57 Dose: 324 mg Dexamethasone (Dexamethasone) Confirm Administered Dose 20 mg .ROUTE .STK-MED ONE Stop: 03/28/19 10:12 Fentanyl (Sublimaze) Confirm Administered Dose 250 mcg .ROUTE .STK-MED ONE Stop: 03/28/19 09:51 Sodium Chloride (Normal Saline) 1,000 mls @ 999 mls/hr IV BOLUS ONE Stop: 03/26/19 19:11 Last Admin: 03/26/19 18:10 Dose: 999 mls/hr Levofloxacin/Dextrose 750 mg/ (Premix) 150 mls @ 100 mls/hr IV Q24H [facility] Last Admin: 03/26/19 23:16 Dose: 100 mls/hr Cefoxitin Sodium 1 gm/ Premix 50 mls @ 100 mls/hr IV Q6H [facility] Stop: 04/01/19 11:01 Last Admin: 03/27/19 11:08 Dose: 100 mls/hr Lactated Ringer's (Ringers, Lactated) 1,000 mls @ 125 mls/hr IV ASDIRECTED [facility] Bupivacaine HCl/Epinephrine Bitart (Sensorc Mpf 0.25%-Epi [id number]) Confirm Administered Dose 60 mls @ as directed .ROUTE .STK-MED ONE Stop: 03/28/19 09:28 Sodium Chloride (Normal Saline) Confirm Administered Dose 20 mls @ as directed .ROUTE .STK-MED ONE Stop: 03/28/19 10:02 Acetaminophen (Ofirmev) Confirm Administered Dose 100 mls @ as directed IV .STK- MED ONE Stop: 03/28/19 10:11 Iopamidol (Isovue-370 (76%)) 100 ml IVPUSH ONETIME ONE Stop: 03/26/19 19:01 Last Admin: 03/26/19 19:01 Dose: 100 ml Ketamine HCl (Ketalar) Confirm Administered Dose 500 mg .ROUTE .STK-MED ONE Stop: 03/28/19 10:00 Lidocaine (Xylocaine-Mpf 2%) Confirm Administered Dose 5 ml .ROUTE .STK-MED ONE Stop: 03/28/19 09:54 Lorazepam (Ativan) 0.5 mg IVPUSH ONETIME ONE Stop: 03/27/19 03:27 Last Admin: 03/27/19 03:37 Dose: 0.5 mg Midazolam HCl (Versed 1 Mg/Ml) Confirm Administered Dose 2 mg .ROUTE .STK-MED ONE Stop: 03/28/19 09:51 Morphine Sulfate (Morphine) 2 mg IVPUSH ONETIME ONE Stop: 03/26/19 18:29 Last Admin: 03/26/19 18:34 Dose: 2 mg Morphine Sulfate (Morphine) Confirm Administered Dose 2 mg .ROUTE .STK-MED ONE Stop: 03/26/19 18:32 Last Admin: 03/26/19 18:53 Dose: Not Given Morphine Sulfate (Morphine) 2 mg IVPUSH ONETIME ONE Stop: 03/26/19 20:46 Last Admin: 03/26/19 22:31 Dose: 2 mg Morphine Sulfate (Morphine) 3 mg IVPUSH Q4H PRN PRN Reason: Pain Last Admin: 03/27/19 08:13 Dose: 3 mg Nitroglycerin (Nitrostat) 0.4 mg SL Q5M PRN PRN Reason: Chest Pain Stop: 03/27/19 17:44 Last Admin: 03/26/19 18:10 Dose: 0.4 mg Octyl Cyanoacrylate (Dermabond Advance) Confirm Administered Dose 2 applic .ROUTE .STK-MED ONE Stop: 03/28/19 09:28 Propofol (Diprivan 20 Ml) Confirm Administered Dose 200 mg .ROUTE .STK-MED ONE Stop: 03/28/19 09:51 Rocuronium Peytona (Zemuron) Confirm Administered Dose 100 mg .ROUTE .STK-MED ONE Stop: 03/28/19 09:54 - Exam General: Alert, Oriented, Cooperative Lungs: Clear to Auscultation, Normal Respiratory Effort Cardiovascular: Regular Rhythm, Tachycardia GI/Abdominal Exam: Other (Tender in RUQ and RLQ. ) Extremities: Normal Inspection, No Pedal Edema Consult PN Assessment/Plan Procedures: Procedures ASSAY OF AMYLASE (05/13/18) ASSAY OF FREE TESTOSTERONE (10/16/16) ASSAY OF FREE THYROXINE (01/29/16) ASSAY OF LIPASE (05/13/18) ASSAY OF TOTAL TESTOSTERONE (10/16/16) ASSAY OF TROPONIN QUANT (05/13/18) ASSAY THYROID STIM HORMONE (03/16/18) COMPLETE CBC W/AUTO DIFF WBC (05/13/18) COMPREHEN METABOLIC PANEL (05/13/18) CORTISOL FREE (04/04/16) DRUG TEST PRSMV DIR OPT OBS (03/16/18) ELECTROCARDIOGRAM TRACING (05/13/18) EMERGENCY DEPT VISIT (05/13/18) FREE ASSAY (FT-3) (01/29/16) HYDRATE IV INFUSION ADD-ON (05/13/18) LIPID PANEL (03/16/18) METABOLIC PANEL TOTAL CA (05/13/18) PROTHROMBIN TIME (05/13/18) ROUTINE VENIPUNCTURE (05/13/18) THER/PROPH/DIAG INJ IV PUSH (05/13/18) TOTAL CORTISOL (04/01/16) TX/PRO/DX INJ NEW DRUG ADDON (05/13/18) URINALYSIS AUTO W/SCOPE (05/13/18) VIT D 1 25-DIHYDROXY (01/18/14) X-RAY EXAM CHEST 1 VIEW (05/13/18) Problem List Initiated/Reviewed/Updated: Yes My Orders Last 24 Hours: My Active Orders 03/27/19 10:45 Methadone 20 mg PO BID 03/27/19 11:23 LORazepam [Ativan] 1 mg IVPUSH Q6H PRN 03/27/19 12:00 Methadone 10 mg PO DAILY@1200 Plan: 58 y/o male with history of chronic pain admitted for acute cholecystitis started on IV antibiotics and now with increased WBC and continued pain. Has been NPO and will be going to surgery this morning. His history of chronic pain will make it more difficult to control his pain. For now, continue with home dose of methadone and morphine IV PRN and adjust as necessary.
--- NOTE | 2019-03-28 11:05 | PCM.SN ---
- Free Text/Narrative Note: pain persisted, now w low grade temp 100.1, and elevated wbc, card consult christal , prelim report, pain from gb; proceed w surgery; rb dw pt re bleeding/infection /bile leak/post pain; pt concur and proceed
[2019-03-28] MEDS ORDERED: Esmolol 100 MG/10 ML SDV ONE (11:38)
[2019-03-28] MEDS ORDERED: Ondansetron 4 MG/2 ML SDV ONE (12:11)
[2019-03-28] MEDS ORDERED: Neostigmine Methylsulfate 1 MG/ML 5 ML Syringe ONE (12:11)
[2019-03-28] MEDS ORDERED: Glycopyrrolate 0.2 MG/ML SDV ONE (12:11)
[2019-03-28] MEDS ORDERED: Ketorolac 30 MG/ML SDV ONE (12:11)
[2019-03-28] MEDS ORDERED: Desflurane 240 ML Bottle ONE (13:20)
--- NOTE | 2019-03-28 13:53 | PCM.OPNOTE ---
- General Post-Op/Procedure Note Date of Surgery/Procedure: 03/28/19 Operative Procedure(s): laparoscopic cholecystectomy Findings: gb wall thickening, green and yellow, distended, severely engulfed by omentum; several large stones, largest 3X 2 cm; surgicell and drain placement; [id number] Pre Op Diagnosis: acute and chronic cholecystitis Post-Op Diagnosis: Same Anesthesia Technique: General ET Tube Primary Surgeon: Dominguez Fitch Pathology: sent Surgical Drain/Tube Type: Augustine Enriquez Flat Drain Complications: None Condition: Good Free Text/Narrative:: Intake & Output 03/27/19 03/28/19 03/28/19 22:59 06:59 14:59 Intake Total 1990 1460 706 Output Total 400 Balance 1990 1060 706
[2019-03-28] MEDS ORDERED: Morphine 4 MG/ML Syringe IVPUSH PRN (14:02)
[2019-03-28] MEDS ORDERED: Promethazine 25 MG Tab PO PRN (14:04)
--- NOTE | 2019-03-28 14:57 | PCM.SN ---
- Free Text/Narrative Note: [id number]
--- NOTE | 2019-03-28 15:20 | PCM.POSTAN ---
POST ANESTHESIA ASSESSMENT - MENTAL STATUS Mental Status: Alert, Oriented - RESPIRATORY Respiratory Status: Respiratory Rate WNL, Airway Patent, O2 Saturation Stable, Supplemental Oxygen - CARDIOVASCULAR CV Status: Pulse Rate WNL, Blood Pressure Stable - GASTROINTESTINAL GI Status: No Symptoms - PAIN Pain Score: 0 - POST OP HYDRATION Hydration Status: Adequate & Stable
--- NOTE | 2019-03-28 17:46 | CONS ---
DATE OF CONSULTATION: DATE OF : 1960 PRIMARY CARE PHYSICIAN: Damir Viveros M.D. REASON FOR CONSULTATION: Epigastric chest pain. HISTORY OF PRESENT ILLNESS: This is a 58-year-old male who has a history of chronic opioid, depression, and hypothyroidism. He came into the hospital basically for chest pain, epigastric discomfort, as well as right upper quadrant pain. He was found to have leukocytosis as well as found to have possible cholecystitis with a small gallstone. However, there was no evidence of CBD dilatation on the CAT scan. He was consulted to me for possible chest pain. When I asked the patient, the patient pointed down on the epigastric area to the right upper quadrant pain. He denied chest pain. The pain was constant since he came into the hospital. Troponin was also checked 3 times and it was negative. EKG was also checked showing sinus tachycardia, heart rate of 110, MD interval 122, and QRS duration 67. I did not appreciate ST abnormalities or troponin elevation. He is getting IV antibiotics for cholecystitis right now. Due to worsening of the leukocytosis, he is planned to have the surgery this afternoon, and I was asked to see him for the preoperative clearance from a cardiac standpoint. PAST MEDICAL HISTORY: Including depression, hypothyroidism, and chronic opioid. SOCIAL HISTORY: He is former smoker. He is chronic opioid. PAST SURGICAL HISTORY: He has a history of laminectomy, lumbar spine. REVIEW OF SYSTEMS: Otherwise has been negative. PHYSICAL EXAMINATION: VITAL SIGNS: Running between 90 to 100/60, heart rate of 80 to 90s, O2 saturation is 93 to 97 on 0 to 2 L. He spiked a fever to 100, but currently is 98.2. HEENT: No pallor. No jaundice. No JVD. HEART: Normal S1, S2. Tachycardia. No murmur. LUNGS: Clear. No wheezing. No crackles. ABDOMEN: Soft. Mildly tender at the right epigastric area. No guarding. No rebound tenderness. Bowel sounds decreased. EXTREMITIES: Legs, no edema. LABORATORY INVESTIGATIONS: CBC showed WBC 24, hematocrit of 41, hemoglobin of 14, and platelets of 303. Sodium 136, potassium 4, chloride 99, bicarb 27, BUN 11, and creatinine 0.8. Troponins negative x3. Lipase and amylase are negative. Total bilirubin is 1. Alkaline phosphatase is normal. IMAGING: Echocardiogram, preliminary report, shows hyperdynamic LV ejection fraction more than 65%. No significant valvular abnormalities. EKG shows sinus tachycardia, heart rate of 110, MD interval 122, QRS duration 67, and QTc interval 423. ASSESSMENT AND PLAN: This is a 58-year-old male with history of chronic opioid, who came into the hospital with right upper quadrant pain, possible acute cholecystitis. He denies chest pain to me. I do feel that the pain that he is experiencing right now is more from the gallbladder. Troponin has been negative x3. No evidence of a heart attack. EKG is unremarkable. Echocardiogram also showing a hyperdynamic LV LVEF > 70% possibly due to active infection as well as pain response. Due to an urgent nature of the surgery, I would not recommend him to wait, given the risk impending sepsis, and his risk for the operation seems to be [id number] risk, and the risks of the surgery seems to be intermediate. TIFFANI / MARSHALL /[id number] ANITA
[2019-03-28] MEDS: Pantoprazole 40 MG in Sodium Chloride 0.9% 10 ML IV SCH (23:10)
[2019-03-29] MEDS: Methadone 10 MG Tab PO SCH ×2 (02:34→08:05)
[2019-03-29] MEDS: Piperacillin/Tazobactam 3.375 GM in Sodium Chloride 0.9% 50 ML IV SCH ×4 (02:34→23:24)
[2019-03-29] MEDS: Lactated Ringers 1,000 ML IV SCH (05:20)
[2019-03-29 06:02] LABS: CHLORIDE,CL 103 mmol/L (98-107); SODIUM,NA 137 mmol/L (136-148)
[2019-03-29] MEDS ORDERED: Acetaminophen/HYDROcodone 325-5 MG Tab PO PRN (08:35)
--- NOTE | 2019-03-29 08:42 | OR ---
SURGEON: Dominguez Fitch MD DATE OF PROCEDURE: 03/28/2019 PREOPERATIVE DIAGNOSIS: Acute on chronic cholecystitis. POSTOPERATIVE DIAGNOSIS: Acute on chronic cholecystitis. PROCEDURE PERFORMED: Laparoscopic cholecystectomy with drain placement and Surgicel placement. PRIMARY SURGEON: Dominguez Fitch MD. COMPLICATIONS: None. FINDINGS: Gallbladder was very distended, enlarged, and severely engulfed by omentum. There was some area of peritoneal fluid that suggests infection. Wall was thickened, several large stones, largest is 3 x 2 cm. INDICATIONS: The patient is a 58-year-old gentleman with history of chronic pain syndrome, admitted through the emergency room and put up with 1-day of 24 hours of IV antibiotic, and the patient was then taken to the operating room by myself. DESCRIPTION OF PROCEDURE: The patient was taken to the operating room and placed in supine position. Upon induction of general endotracheal anesthesia, the patient's abdomen was prepped and draped in a sterile fashion. A time-out has been called, patient identified, procedure identified, and antibiotic has been going around the clock and has at least 24 hours of IV antibiotic. After assessment of appropriate landmarks using Surinder procedure, a 12 mm trocar was placed supraumbilically, pneumoperitoneum was accomplished, and under direct video supervision, 3 more trocars, 5 mm, were placed in the right upper quadrant and epigastrium and in the right lateral port under direct video supervision. Upon gaining entrance to the peritoneum, it was immediately noted that the gallbladder was severely engulfed by omentum, and the peritoneal fluid was a little bit yellow and purulent, suggesting infection, and carefully dissect out and peel off the engulfed omentum. The gallbladder was noted to be hyperemic and also some area of yellow and green consistent with chronic cholecystitis, and carefully worked on the Calot triangle, identified a tubular structure, and directly go to gallbladder, and 4 clips were then placed, 3 proximally and 1 distally, and then cut with a scissor. Placement of the clip and transection on the tubular structure was performed with care and ensuring the posterior prong of the instrument was carefully visualized prior to exercising the procedure and then continued dissection came up to Calot triangle to find the cystic artery, which was clipped 3 times and transected. Again, placement of the clip and transection. Procedures were performed with care, ensuring the posterior prong of the instrument was observed before carrying out the procedure. The gallbladder was then carefully dissected out from the liver bed and because of edematous and inflammation, caused some bleeding requiring at least 15 minutes hemostasis with cautery. This was then followed with placement of Surgicel and also a 10 DESTINY drain was placed, exit from the most lateral port site. Drain was anchored to the skin using 2-0 silk. This was then followed with appropriate closing of the umbilical site, closed with deep stitches, and the umbilical site had to enlarge 2 times in order for the stone 3 x 2 cm to get out of the port site, and this was then repaired by use of 2-0 Vicryl. Skin approximated by use of skin delmi and followed by appropriate dressing. The patient was then awakened, extubated, and transferred to recovery room in hemodynamically stable condition. The patient tolerated the procedure well. There were no intraoperative complications. CHYNA / MARSHALL /[id number]
--- NOTE | 2019-03-29 09:20 | PCM48HPAN ---
Post Anesthesia Note - EVALUATION WITHIN 48HRS OF ANESTHETIC Vital Signs in Normal Range: Yes Patient Participated in Evaluation: Yes Respiratory Function Stable: Yes Airway Patent: Yes Cardiovascular Function Stable: Yes Hydration Status Stable: Yes Pain Control Satisfactory: Yes (Comfortable on analgesic protocol) Nausea and Vomiting Control Satisfactory: Yes Mental Status Recovered: Yes Vital Signs: Last Vital Signs Temp 97.1 F 03/29/19 07:30 Pulse 60 03/29/19 07:30 Resp 11 L 03/29/19 07:30 BP 94/60 03/29/19 07:30 Pulse Ox 93 L 03/29/19 07:30
[2019-03-29] MEDS: Thiamine 200 MG/2 ML MDV IV SCH (09:21)
[2019-03-29] MEDS: Folic Acid 50 MG/10 ML MDV SUBCUT SCH (09:24)
--- NOTE | 2019-03-29 09:49 | PCM.DCSUM1 ---
Discharge Summary - Hospital Course Free Text/Narrative:: admitted via ed for chest pain/abd pain HPI Initial Comments: as above Brief History: pt has chronic pain issue on hi dose of methadon 50 mg a day; seen in ed for 2 days acute onset of chest pain/abd pain; at ed troponin was negative; ct . questionable small stones; US > stones; no ductal dilation; pt was admitted for further management Diagnosis: Stroke: No - Discharge Data Discharge Date: 03/29/19 Discharge Disposition: Home, Self-Care 01 Condition: Good - Patient Summary/Data Operative Procedure(s) Performed: laparoscopic cholecystectomy Consults: Consultations 03/27/19 10:11 Consult to Physician [CONS] Routine hospitalist for pain and methadon use 03/28/19 08:11 Consult to Physician [CONS] Routine to paving rammer for chest pain Hospital Course: pt was admitted via ed after ro cardiavascular events, troponin was negative; because of abd pain and leukocytosis; pt was admitted for further management; hosp was consulted for methadon use, pt used 20 mg BID and 10 mg at noon, plus norco; admission LFT was normal, US > stones, no pericholecystetic fluid or ductal dilation; put on levaguin 1st, then switched to zosyn; wbc continue to increase; pt was taken to surg the next, s/p lap arthur w drain placement; postop pt returned to the floor, and started on clear; pt daly and advance to full low fat; daly, and void, pain in management, dc home on pt home regimen of methadon and norco; fu 1 wk to dc drain - Patient Instructions Diet: Regular Diet as Tolerated, Full Liquid Diet Diet, Other: low fat diet X 3 wks, ok to slow start low fat diet 2 days Activity: No Lifting Over 10 Pounds, No Strenuous Activities, Rest and Relax Today Driving: Do Not Drive Showering/Bathing: May Shower in 3 Days Wound/Incision Care: Keep Operative Site/Wound Site Clean and Dry Notify Provider of: Fever, Drainage, Nausea and/or Vomiting - Discharge Plan Home Medications: Home Meds Hydrocodone/Acetaminophen [Hydrocodon-Acetaminophn 10-325] 10 - 325 mg PO Q6H [History] Methadone 10 mg PO DAILY@1200 05/13/18 [History] Testosterone Cypionate [Depo-Testosterone] 2,000 mg IM ASDIRECTED 05/13/18 [ History] FLUoxetine [PROzac] 10 mg PO DAILY 03/27/19 [History] Methadone 20 mg PO BID 03/27/19 [History] Referrals: Dominguez Fitch MD [Physician] - Damir Viveros MD [Primary Care Provider] - - Discharge Summary/Plan Comment DC Time >30 min.: Yes - Patient Data Vitals - Most Recent: Last Vital Signs Temp 97.1 F 03/29/19 07:30 Pulse 60 03/29/19 07:30 Resp 11 L 03/29/19 07:30 BP 94/60 03/29/19 07:30 Pulse Ox 93 L 03/29/19 07:30 Weight - Most Recent: 153 lb 3.2 oz I&O - Last 24 hours: Intake & Output 03/28/19 03/29/19 03/29/19 22:59 06:59 14:59 Intake Total 3000 1350 Output Total 175 450 Balance 2825 900 Lab Results - Last 24 hrs: Laboratory Results - last 24 hr 03/29/19 03/29/19 Range/Units 05:20 05:20 WBC 17.63 H (4.0-11.0) K/uL RBC 3.47 L (4.50-5.90) M/uL Hgb 10.6 L (13.0-17.0) g/dL Hct 33.0 L (38.0-50.0) % MCV 95.1 (80.0-98.0) fL MCH 30.5 (27.0-32.0) pg MCHC 32.1 (31.0-37.0) g/dL RDW Std Deviation 49.6 (28.0-62.0) fl RDW Coeff of Abdirizak 14 (11.0-15.0) % Plt Count 221 (150-400) K/uL MPV 9.40 (7.40-12.00) fL Neut % (Auto) 94.0 H (48.0-80.0) % Lymph % (Auto) 1.9 L (16.0-40.0) % [place] % (Auto) 4.1 (0.0-15.0) % Eos % (Auto) 0.0 (0.0-7.0) % Baso % (Auto) 0.0 (0.0-1.5) % Neut # (Auto) 16.6 H (1.4-5.7) K/uL Lymph # (Auto) 0.3 L (0.6-2.4) K/uL [place] # (Auto) 0.7 (0.0-0.8) K/uL Eos # (Auto) 0.0 (0.0-0.7) K/uL Baso # (Auto) 0.0 (0.0-0.1) K/uL Nucleated RBC % 0.0 /100WBC Nucleated RBCs # 0 K/uL Sodium 137 (136-148) mmol/L Potassium 4.4 (3.5-5.1) mmol/L Chloride 103 (98-107) mmol/L Carbon Dioxide 29.1 (21.0-32.0) mmol/L BUN 22 H (7.0-18.0) mg/dL Creatinine 0.9 (0.8-1.3) mg/dL Est Cr Clr Drug Dosing 81.72 mL/min Estimated GFR (MDRD) > 60.0 ml/min Glucose 122 H (74-106) mg/dL Calcium 8.8 (8.5-10.1) mg/dL Total Bilirubin 0.5 (0.2-1.0) mg/dL AST 48 H (15-37) IU/L ALT 46 (14-63) IU/L Alkaline Phosphatase 46 (46-116) U/L Total Protein 5.3 L (6.4-8.2) g/dL Albumin 2.0 L (3.4-5.0) g/dL Globulin 3.3 (2.6-4.0) g/dL Albumin/Globulin Ratio 0.6 L (0.9-1.6) GET Results - Last 24 hrs: Microbiology 03/26/19 22:53 Urine Culture - Final Urine, Clean Catch MIXED GLENN 10,000-100,000 CFU/ML 03/28/19 11:56 Gram Stain - Preliminary Gallbladder Fluid - Bile Med Orders - Current: Current Medications Hydrocodone Bitart/Acetaminophen ([place] 325-5 Mg) 1 tab PO Q4H PRN PRN Reason: Breakthrough Pain Folic Acid (Folic Acid) 1 mg SUBCUT DAILY LAINEY Last Admin: 03/29/19 09:24 Dose: 1 mg Acetaminophen 1,000 mg/ Premix 100 mls @ 400 mls/hr IV Q6H PRN PRN Reason: Pain Lactated Ringer's (Ringers, Lactated) 1,000 mls @ 125 mls/hr IV ASDIRECTED [facility] Last Admin: 03/29/19 05:20 Dose: 125 mls/hr Piperacillin Sod/Tazobactam (Sod 3.375 gm/ Sodium Chloride) 50 mls @ 100 mls/ hr IV Q6H [facility] Last Admin: 03/29/19 09:25 Dose: 100 mls/hr Methadone HCl (Methadone) 20 mg PO BID [facility] Methadone HCl (Methadone) 10 mg PO DAILY@1200 LAINEY Promethazine HCl (Phenergan) 25 mg PO Q8H PRN PRN Reason: Nausea/Vomiting Thiamine HCl (Vitamin B-1) 100 mg IV DAILY [facility] Last Admin: 03/29/19 09:21 Dose: 100 mg Discontinued Medications Aspirin (Aspirin) 324 mg PO ONETIME ONE Stop: 03/26/19 17:49 Last Admin: 03/26/19 17:57 Dose: 324 mg Desflurane (Suprane) Confirm Administered Dose 240 ml .ROUTE .STK-MED ONE Stop: 03/28/19 13:21 Dexamethasone (Dexamethasone) Confirm Administered Dose 20 mg .ROUTE .STK-MED ONE Stop: 03/28/19 10:12 Esmolol HCl (Esmolol) Confirm Administered Dose 100 mg .ROUTE .STK-MED ONE Stop: 03/28/19 11:39 Fentanyl (Sublimaze) Confirm Administered Dose 250 mcg .ROUTE .STK-MED ONE Stop: 03/28/19 09:51 Fentanyl (Sublimaze) Confirm Administered Dose 250 mcg .ROUTE .STK-MED ONE Stop: 03/28/19 11:34 Glycopyrrolate (Robinul) Confirm Administered Dose 0.4 mg .ROUTE .STK-MED ONE Stop: 03/28/19 12:12 Sodium Chloride (Normal Saline) 1,000 mls @ 999 mls/hr IV BOLUS ONE Stop: 03/26/19 19:11 Last Admin: 03/26/19 18:10 Dose: 999 mls/hr Lactated Ringer's (Ringers, Lactated) 1,000 mls @ 125 mls/hr IV ASDIRECTED [facility] Last Admin: 03/28/19 07:40 Dose: 125 mls/hr Levofloxacin/Dextrose 750 mg/ (Premix) 150 mls @ 100 mls/hr IV Q24H [facility] Last Admin: 03/26/19 23:16 Dose: 100 mls/hr Pantoprazole Sodium 40 mg/ (Sodium Chloride) 10 mls @ 300 mls/hr IV Q24H [facility] Last Admin: 03/28/19 23:10 Dose: 300 mls/hr Cefoxitin Sodium 1 gm/ Premix 50 mls @ 100 mls/hr IV Q6H [facility] Stop: 04/01/19 11:01 Last Admin: 03/27/19 11:08 Dose: 100 mls/hr Piperacillin Sod/Tazobactam (Sod 3.375 gm/ Sodium Chloride) 50 mls @ 100 mls/ hr IV Q6H [facility] Last Admin: 03/28/19 14:35 Dose: Not Given Lactated Ringer's (Ringers, Lactated) 1,000 mls @ 125 mls/hr IV ASDIRECTED [facility] Bupivacaine HCl/Epinephrine Bitart (Sensorc Mpf 0.25%-Epi [id number]) Confirm Administered Dose 60 mls @ as directed .ROUTE .STK-MED ONE Stop: 03/28/19 09:28 Sodium Chloride (Normal Saline) Confirm Administered Dose 20 mls @ as directed .ROUTE .STK-MED ONE Stop: 03/28/19 10:02 Acetaminophen (Ofirmev) Confirm Administered Dose 100 mls @ as directed IV .STK- MED ONE Stop: 03/28/19 10:11 Iopamidol (Isovue-370 (76%)) 100 ml IVPUSH ONETIME ONE Stop: 03/26/19 19:01 Last Admin: 03/26/19 19:01 Dose: 100 ml Ketamine HCl (Ketalar) Confirm Administered Dose 500 mg .ROUTE .STK-MED ONE Stop: 03/28/19 10:00 Ketorolac Tromethamine (Toradol) Confirm Administered Dose 60 mg .ROUTE .STK- MED ONE Stop: 03/28/19 12:12 Lidocaine (Xylocaine-Mpf 2%) Confirm Administered Dose 5 ml .ROUTE .STK-MED ONE Stop: 03/28/19 09:54 Lidocaine (Xylocaine-Mpf 2%) Confirm Administered Dose 5 ml .ROUTE .STK-MED ONE Stop: 03/28/19 12:27 Lorazepam (Ativan) 0.5 mg IVPUSH ONETIME ONE Stop: 03/27/19 03:27 Last Admin: 03/27/19 03:37 Dose: 0.5 mg Lorazepam (Ativan) 1 mg IVPUSH Q6H PRN PRN Reason: Anxiety Last Admin: 03/28/19 10:18 Dose: 1 mg Methadone HCl (Methadone) 20 mg PO BID [facility] Last Admin: 03/28/19 08:53 Dose: 20 mg Methadone HCl (Methadone) 10 mg PO DAILY@1200 LAINE[facility] Last Admin: 03/28/19 14:00 Dose: Not Given Methadone HCl (Methadone) 20 mg PO Q6H [facility] Last Admin: 03/29/19 08:05 Dose: 20 mg Midazolam HCl (Versed 1 Mg/Ml) Confirm Administered Dose 2 mg .ROUTE .STK-MED ONE Stop: 03/28/19 09:51 Morphine Sulfate (Morphine) 2 mg IVPUSH ONETIME ONE Stop: 03/26/19 18:29 Last Admin: 03/26/19 18:34 Dose: 2 mg Morphine Sulfate (Morphine) Confirm Administered Dose 2 mg .ROUTE .STK-MED ONE Stop: 03/26/19 18:32 Last Admin: 03/26/19 18:53 Dose: Not Given Morphine Sulfate (Morphine) 2 mg IVPUSH ONETIME ONE Stop: 03/26/19 20:46 Last Admin: 03/26/19 22:31 Dose: 2 mg Morphine Sulfate (Morphine) 3 mg IVPUSH Q4H PRN PRN Reason: Pain Last Admin: 03/27/19 08:13 Dose: 3 mg Morphine Sulfate (Morphine) 4 mg IV Q3H PRN PRN Reason: PAIN Last Admin: 03/28/19 07:47 Dose: 4 mg Morphine Sulfate (Morphine) 3 mg IVPUSH Q4H PRN PRN Reason: Breakthrough Pain Neostigmine Methylsulfate (Neostigmine) Confirm Administered Dose 5 mg .ROUTE .STK-MED ONE Stop: 03/28/19 12:12 Nitroglycerin (Nitrostat) 0.4 mg SL Q5M PRN PRN Reason: Chest Pain Stop: 03/27/19 17:44 Last Admin: 03/26/19 18:10 Dose: 0.4 mg Octyl Cyanoacrylate (Dermabond Advance) Confirm Administered Dose 2 applic .ROUTE .STK-MED ONE Stop: 03/28/19 09:28 Ondansetron HCl (Zofran) 4 mg IVPUSH Q8H PRN PRN Reason: Nausea/Vomiting Ondansetron HCl (Zofran) Confirm Administered Dose 4 mg .ROUTE .STK-MED ONE Stop: 03/28/19 12:12 Propofol (Diprivan 20 Ml) Confirm Administered Dose 200 mg .ROUTE .STK-MED ONE Stop: 03/28/19 09:51 Rocuronium Evans (Zemuron) Confirm Administered Dose 100 mg .ROUTE .STK-MED ONE Stop: 03/28/19 09:54
[2019-03-29] MEDS ORDERED: Methadone 10 MG Tab PO SCH ×2 (12:00→21:00)
--- NOTE | 2019-03-29 12:10 | ECHO ---
The echocardiogram report can be seen in this patient's EMR (Electronic Medical Records) in the Reports section. The echocardiogram report has also been scanned into PACS and can be seen there as well. ANITA
[2019-03-29] MEDS ORDERED: Iopamidol 755 MG/ML 500 ML Multipack Bottle IVPUSH STA (13:58)
--- NOTE | 2019-03-29 15:51 | CT ---
INDICATION: Shortness of breath. Desaturation. COMPARISON: CT of the abdomen and pelvis from 03/26/2019 TECHNIQUE: CT examination of the chest was performed with the uneventful intravenous administration of 50 cc of Isovue 370 while 1 mm thick axial sections were obtained through the pulmonary arteries. Please note that all CT scans at this facility use dose modulation, iterative reconstruction, and/or weight-based dosing when appropriate to reduce radiation dose to as low as reasonably achievable. FINDINGS: : There is no sign of pulmonary embolism, with normal enhancement and branching of the pulmonary arteries. There is new prominent consolidation of the posterior right lower lobe and new moderate consolidation of the posterior left lower lobe. There is a new mild right pleural effusion. There is a new tiny left pleural effusion. There is mild prominence of interstitial markings throughout the lungs, with a patchy ground-glass appearance. The appearance in the lung bases is stable compared to the previous abdomen CT. There is no sign of mediastinal or hilar mass or adenopathy. The heart and great vessels are normal in appearance. There is no sign of supraclavicular or axillary mass or adenopathy. The visualized superior liver, spleen, pancreas, left kidney, and adrenals are normal in appearance. The osseous structures are normal in appearance for the patient`s age. IMPRESSION: No sign of pulmonary embolism. New prominent consolidation of the posterior right lower lobe. New moderate consolidation of the posterior left lower lobe. New small right and minimal left pleural effusions. Please note that all CT scans at this facility use dose modulation, iterative reconstruction, and/or weight-based dosing when appropriate to reduce radiation dose to as low as reasonably achievable. Dictated by Jace Garsia MD @ Mar 29 2019 3:41PM Signed by Dr. Jace Garsia @ Mar 29 2019 3:49PM
--- NOTE | 2019-03-29 16:01 | PCM.SN ---
- Free Text/Narrative Note: pt desat > CT ang, no PE, but new onset small B pl effusion and possible atellecis at B lower lobe; will hold discharge and methadon; keep in telemetry; continue full liquid, low fat
[2019-03-29] MEDS ORDERED: Cefepime 2 GM in Premix Bag 1 BAG IV SCH (16:15)
[2019-03-29] MEDS: Acetaminophen 1,000 MG in Premix Bag 1 BAG IV PRN (20:20)
[2019-03-29] MEDS ORDERED: Amoxicillin/Clavulanate K 875-125 MG Tab PO SCH (21:00)
[2019-03-29] MEDS: oxyCODONE 5 MG Tab PO PRN (23:28)
[2019-03-30] MEDS: Piperacillin/Tazobactam 3.375 GM in Sodium Chloride 0.9% 50 ML IV SCH ×2 (04:36→10:16)
[2019-03-30] MEDS: oxyCODONE 5 MG Tab PO PRN (04:41)
[2019-03-30 06:32] LABS: CHLORIDE,CL 103 mmol/L (98-107); SODIUM,NA 139 mmol/L (136-148)
[2019-03-30] MEDS: Acetaminophen 1,000 MG in Premix Bag 1 BAG IV PRN (07:56)
--- NOTE | 2019-03-30 08:56 | PCM.CONSN ---
<Yon Evans - Last Filed: 03/30/19 08:58> - General Info Date of Service: 03/30/19 Subjective Update: 58 y/o male s/p cholecystectomy on 03/29/19 who was found to have right lower lobe pneumonia. Currently on 3 L O2 satting 93%. On Zosyn. This morning the patient stated he felt somewhat better. No chest pain. Abdominal pain under control. - Patient Data Vitals - Most Recent: Last Vital Signs Temp 36.2 C 03/30/19 07:30 Pulse 55 L 03/30/19 07:30 Resp 14 03/30/19 07:30 BP 116/71 03/30/19 07:30 Pulse Ox 88 L 03/30/19 08:30 Weight - Most Recent: 69.49 kg I&O - Last 24 Hours: Intake & Output 03/29/19 03/30/19 03/30/19 22:59 06:59 14:59 Intake Total 1310 940 100 Output Total 690 880 Balance 620 60 100 Lab Results Last 24 Hours: Laboratory Results - last 24 hr 03/30/19 03/30/19 Range/Units 05:42 05:42 WBC 12.50 H (4.0-11.0) K/uL RBC 3.50 L (4.50-5.90) M/uL Hgb 10.8 L (13.0-17.0) g/dL Hct 33.7 L (38.0-50.0) % MCV 96.3 (80.0-98.0) fL MCH 30.9 (27.0-32.0) pg MCHC 32.0 (31.0-37.0) g/dL RDW Std Deviation 52.1 (28.0-62.0) fl RDW Coeff of Abdirizak 15 (11.0-15.0) % Plt Count 252 (150-400) K/uL MPV 9.40 (7.40-12.00) fL Neut % (Auto) 84.7 H (48.0-80.0) % Lymph % (Auto) 7.2 L (16.0-40.0) % [place] % (Auto) 6.5 (0.0-15.0) % Eos % (Auto) 1.6 (0.0-7.0) % Baso % (Auto) 0.0 (0.0-1.5) % Neut # (Auto) 10.6 H (1.4-5.7) K/uL Lymph # (Auto) 0.9 (0.6-2.4) K/uL [place] # (Auto) 0.8 (0.0-0.8) K/uL Eos # (Auto) 0.2 (0.0-0.7) K/uL Baso # (Auto) 0.0 (0.0-0.1) K/uL Nucleated RBC % 0.0 /100WBC Nucleated RBCs # 0 K/uL Sodium 139 (136-148) mmol/L Potassium 4.3 (3.5-5.1) mmol/L Chloride 103 (98-107) mmol/L Carbon Dioxide 34.3 H (21.0-32.0) mmol/L BUN 16 (7.0-18.0) mg/dL Creatinine 0.9 (0.8-1.3) mg/dL Est Cr Clr Drug Dosing 81.72 mL/min Estimated GFR (MDRD) > 60.0 ml/min Glucose 87 (74-106) mg/dL Calcium 8.7 (8.5-10.1) mg/dL Total Bilirubin 0.3 (0.2-1.0) mg/dL AST 38 H (15-37) IU/L ALT 52 (14-63) IU/L Alkaline Phosphatase 47 (46-116) U/L Total Protein 5.6 L (6.4-8.2) g/dL Albumin 2.2 L (3.4-5.0) g/dL Globulin 3.4 (2.6-4.0) g/dL Albumin/Globulin Ratio 0.7 L (0.9-1.6) Collins Results Last 24 Hours: Microbiology 03/26/19 22:53 Urine Culture - Final Urine, Clean Catch MIXED GLENN 10,000-100,000 CFU/ML Med Orders - Current: Current Medications Folic Acid (Folic Acid) 1 mg SUBCUT DAILY [facility] Last Admin: 03/29/19 09:24 Dose: 1 mg Acetaminophen 1,000 mg/ Premix 100 mls @ 400 mls/hr IV Q6H PRN PRN Reason: Pain Last Admin: 03/30/19 07:56 Dose: 400 mls/hr Piperacillin Sod/Tazobactam (Sod 3.375 gm/ Sodium Chloride) 50 mls @ 100 mls/ hr IV Q6H [facility] Last Admin: 03/30/19 04:36 Dose: 100 mls/hr Oxycodone HCl (Oxycodone) 5 mg PO Q4H PRN PRN Reason: Pain Last Admin: 03/30/19 04:41 Dose: 5 mg Promethazine HCl (Phenergan) 25 mg PO Q8H PRN PRN Reason: Nausea/Vomiting Thiamine HCl (Vitamin B-1) 100 mg IV DAILY [facility] Last Admin: 03/29/19 09:21 Dose: 100 mg Discontinued Medications Hydrocodone Bitart/Acetaminophen ([place] 325-5 Mg) 1 tab PO Q4H PRN PRN Reason: Breakthrough Pain Aspirin (Aspirin) 324 mg PO ONETIME ONE Stop: 03/26/19 17:49 Last Admin: 03/26/19 17:57 Dose: 324 mg Desflurane (Suprane) Confirm Administered Dose 240 ml .ROUTE .STK-MED ONE Stop: 03/28/19 13:21 Dexamethasone (Dexamethasone) Confirm Administered Dose 20 mg .ROUTE .STK-MED ONE Stop: 03/28/19 10:12 Esmolol HCl (Esmolol) Confirm Administered Dose 100 mg .ROUTE .STK-MED ONE Stop: 03/28/19 11:39 Fentanyl (Sublimaze) Confirm Administered Dose 250 mcg .ROUTE .STK-MED ONE Stop: 03/28/19 09:51 Fentanyl (Sublimaze) Confirm Administered Dose 250 mcg .ROUTE .STK-MED ONE Stop: 03/28/19 11:34 Glycopyrrolate (Robinul) Confirm Administered Dose 0.4 mg .ROUTE .STK-MED ONE Stop: 03/28/19 12:12 Sodium Chloride (Normal Saline) 1,000 mls @ 999 mls/hr IV BOLUS ONE Stop: 03/26/19 19:11 Last Admin: 03/26/19 18:10 Dose: 999 mls/hr Lactated Ringer's (Ringers, Lactated) 1,000 mls @ 125 mls/hr IV ASDIRECTED [facility] Last Admin: 03/28/19 07:40 Dose: 125 mls/hr Levofloxacin/Dextrose 750 mg/ (Premix) 150 mls @ 100 mls/hr IV Q24H [facility] Last Admin: 03/26/19 23:16 Dose: 100 mls/hr Pantoprazole Sodium 40 mg/ (Sodium Chloride) 10 mls @ 300 mls/hr IV Q24H [facility] Last Admin: 03/28/19 23:10 Dose: 300 mls/hr Cefoxitin Sodium 1 gm/ Premix 50 mls @ 100 mls/hr IV Q6H [facility] Stop: 04/01/19 11:01 Last Admin: 03/27/19 11:08 Dose: 100 mls/hr Piperacillin Sod/Tazobactam (Sod 3.375 gm/ Sodium Chloride) 50 mls @ 100 mls/ hr IV Q6H [facility] Last Admin: 03/28/19 14:35 Dose: Not Given Lactated Ringer's (Ringers, Lactated) 1,000 mls @ 125 mls/hr IV ASDIRECTED [facility] Bupivacaine HCl/Epinephrine Bitart (Sensorc Mpf 0.25%-Epi 1:530570) Confirm Administered Dose 60 mls @ as directed .ROUTE .STK-MED ONE Stop: 03/28/19 09:28 Sodium Chloride (Normal Saline) Confirm Administered Dose 20 mls @ as directed .ROUTE .STK-MED ONE Stop: 03/28/19 10:02 Acetaminophen (Ofirmev) Confirm Administered Dose 100 mls @ as directed IV .STK- MED ONE Stop: 03/28/19 10:11 Lactated Ringer's (Ringers, Lactated) 1,000 mls @ 125 mls/hr IV ASDIRECTED [facility] Last Admin: 03/29/19 05:20 Dose: 125 mls/hr Piperacillin Sod/Tazobactam (Sod 3.375 gm/ Sodium Chloride) 50 mls @ 100 mls/ hr IV Q6H [facility] Last Admin: 03/29/19 09:25 Dose: 100 mls/hr Iopamidol (Isovue-370 (76%)) 100 ml IVPUSH ONETIME ONE Stop: 03/26/19 19:01 Last Admin: 03/26/19 19:01 Dose: 100 ml Iopamidol (Isovue Multipack-370 (76%)) 50 ml IVPUSH ONETIME STA Stop: 03/29/19 13:59 Last Admin: 03/29/19 14:00 Dose: 50 ml Ketamine HCl (Ketalar) Confirm Administered Dose 500 mg .ROUTE .STK-MED ONE Stop: 03/28/19 10:00 Ketorolac Tromethamine (Toradol) Confirm Administered Dose 60 mg .ROUTE .STK- MED ONE Stop: 03/28/19 12:12 Lidocaine (Xylocaine-Mpf 2%) Confirm Administered Dose 5 ml .ROUTE .STK-MED ONE Stop: 03/28/19 09:54 Lidocaine (Xylocaine-Mpf 2%) Confirm Administered Dose 5 ml .ROUTE .STK-MED ONE Stop: 03/28/19 12:27 Lorazepam (Ativan) 0.5 mg IVPUSH ONETIME ONE Stop: 03/27/19 03:27 Last Admin: 03/27/19 03:37 Dose: 0.5 mg Lorazepam (Ativan) 1 mg IVPUSH Q6H PRN PRN Reason: Anxiety Last Admin: 03/28/19 10:18 Dose: 1 mg Methadone HCl (Methadone) 20 mg PO BID [facility] Last Admin: 03/28/19 08:53 Dose: 20 mg Methadone HCl (Methadone) 10 mg PO DAILY@1200 [facility] Last Admin: 03/28/19 14:00 Dose: Not Given Methadone HCl (Methadone) 20 mg PO Q6H [facility] Last Admin: 03/29/19 08:05 Dose: 20 mg Methadone HCl (Methadone) 20 mg PO BID [facility] Methadone HCl (Methadone) 10 mg PO DAILY@1200 [facility] Last Admin: 03/29/19 12:30 Dose: 10 mg Midazolam HCl (Versed 1 Mg/Ml) Confirm Administered Dose 2 mg .ROUTE .STK-MED ONE Stop: 03/28/19 09:51 Morphine Sulfate (Morphine) 2 mg IVPUSH ONETIME ONE Stop: 03/26/19 18:29 Last Admin: 03/26/19 18:34 Dose: 2 mg Morphine Sulfate (Morphine) Confirm Administered Dose 2 mg .ROUTE .STK-MED ONE Stop: 03/26/19 18:32 Last Admin: 03/26/19 18:53 Dose: Not Given Morphine Sulfate (Morphine) 2 mg IVPUSH ONETIME ONE Stop: 03/26/19 20:46 Last Admin: 03/26/19 22:31 Dose: 2 mg Morphine Sulfate (Morphine) 3 mg IVPUSH Q4H PRN PRN Reason: Pain Last Admin: 03/27/19 08:13 Dose: 3 mg Morphine Sulfate (Morphine) 4 mg IV Q3H PRN PRN Reason: PAIN Last Admin: 03/28/19 07:47 Dose: 4 mg Morphine Sulfate (Morphine) 3 mg IVPUSH Q4H PRN PRN Reason: Breakthrough Pain Neostigmine Methylsulfate (Neostigmine) Confirm Administered Dose 5 mg .ROUTE .STK-MED ONE Stop: 03/28/19 12:12 Nitroglycerin (Nitrostat) 0.4 mg SL Q5M PRN PRN Reason: Chest Pain Stop: 03/27/19 17:44 Last Admin: 03/26/19 18:10 Dose: 0.4 mg Octyl Cyanoacrylate (Dermabond Advance) Confirm Administered Dose 2 applic .ROUTE .STK-MED ONE Stop: 03/28/19 09:28 Ondansetron HCl (Zofran) 4 mg IVPUSH Q8H PRN PRN Reason: Nausea/Vomiting Ondansetron HCl (Zofran) Confirm Administered Dose 4 mg .ROUTE .STK-MED ONE Stop: 03/28/19 12:12 Propofol (Diprivan 20 Ml) Confirm Administered Dose 200 mg .ROUTE .STK-MED ONE Stop: 03/28/19 09:51 Rocuronium Blair (Zemuron) Confirm Administered Dose 100 mg .ROUTE .STK-MED ONE Stop: 03/28/19 09:54 - Exam Quality Assessment: Supplemental Oxygen General: Alert, Oriented, Cooperative, No Acute Distress Lungs: Other (decreased lung sounds on right, crackles. ) Cardiovascular: Regular Rate, Regular Rhythm GI/Abdominal Exam: Soft, No Distention, Tender Extremities: Normal Inspection, No Pedal Edema Consult PN Assessment/Plan Procedures: Procedures ASSAY OF AMYLASE (05/13/18) ASSAY OF FREE TESTOSTERONE (10/16/16) ASSAY OF FREE THYROXINE (01/29/16) ASSAY OF LIPASE (05/13/18) ASSAY OF TOTAL TESTOSTERONE (10/16/16) ASSAY OF TROPONIN QUANT (05/13/18) ASSAY THYROID STIM HORMONE (03/16/18) COMPLETE CBC W/AUTO DIFF WBC (05/13/18) COMPREHEN METABOLIC PANEL (05/13/18) CORTISOL FREE (04/04/16) DRUG TEST PRSMV DIR OPT OBS (03/16/18) ELECTROCARDIOGRAM TRACING (05/13/18) EMERGENCY DEPT VISIT (05/13/18) FREE ASSAY (FT-3) (01/29/16) HYDRATE IV INFUSION ADD-ON (05/13/18) LIPID PANEL (03/16/18) METABOLIC PANEL TOTAL CA (05/13/18) PROTHROMBIN TIME (05/13/18) ROUTINE VENIPUNCTURE (05/13/18) THER/PROPH/DIAG INJ IV PUSH (05/13/18) TOTAL CORTISOL (04/01/16) TX/PRO/DX INJ NEW DRUG ADDON (05/13/18) URINALYSIS AUTO W/SCOPE (05/13/18) VIT D 1 25-DIHYDROXY (01/18/14) X-RAY EXAM CHEST 1 VIEW (05/13/18) Problem List Initiated/Reviewed/Updated: Yes My Orders Last 24 Hours: My Active Orders 03/29/19 17:00 Piperacillin/Tazobactam [Piperacil-Tazobact] 3.375 gm Sodium Chloride 0.9% [ Normal Saline] 50 ml IV Q6H 03/30/19 08:25 Consult to Physical Therapy [PT Evaluation and Treatment] [CONS] Routine 03/30/19 08:26 RT Supplemental Oxygen Titration [RESPCARE] Routine Plan: 58 y/o male s/p cholecystectomy who is being treated for HCAP on Zosyn and supplemental oxygen. Currently stable. Will titrate O2. Encourage incentive spirometry use. Home oxygen evaluation. PT ordered for ambulation, strengthening. <Bean Davenport M - Last Filed: 03/30/19 10:13> - General Info Admission Dx/Problem (Free Text): I have seen and examined the patient independently of the medical radiation therapist, Dr. Bert MD. I have reviewed and approve of the plan of care as outlined by the resident. I have discussed the case with the resident. Please see orders. - Patient Data Vitals - Most Recent: Last Vital Signs Temp 36.2 C 03/30/19 07:30 Pulse 55 L 03/30/19 07:30 Resp 14 03/30/19 07:30 BP 116/71 03/30/19 07:30 Pulse Ox 88 L 03/30/19 08:30 I&O - Last 24 Hours: Intake & Output 03/29/19 03/30/19 03/30/19 22:59 06:59 14:59 Intake Total 1310 940 100 Output Total 690 880 Balance 620 60 100 Lab Results Last 24 Hours: Laboratory Results - last 24 hr 03/30/19 03/30/19 Range/Units 05:42 05:42 WBC 12.50 H (4.0-11.0) K/uL RBC 3.50 L (4.50-5.90) M/uL Hgb 10.8 L (13.0-17.0) g/dL Hct 33.7 L (38.0-50.0) % MCV 96.3 (80.0-98.0) fL MCH 30.9 (27.0-32.0) pg MCHC 32.0 (31.0-37.0) g/dL RDW Std Deviation 52.1 (28.0-62.0) fl RDW Coeff of Abdirizak 15 (11.0-15.0) % Plt Count 252 (150-400) K/uL MPV 9.40 (7.40-12.00) fL Neut % (Auto) 84.7 H (48.0-80.0) % Lymph % (Auto) 7.2 L (16.0-40.0) % [place] % (Auto) 6.5 (0.0-15.0) % Eos % (Auto) 1.6 (0.0-7.0) % Baso % (Auto) 0.0 (0.0-1.5) % Neut # (Auto) 10.6 H (1.4-5.7) K/uL Lymph # (Auto) 0.9 (0.6-2.4) K/uL [place] # (Auto) 0.8 (0.0-0.8) K/uL Eos # (Auto) 0.2 (0.0-0.7) K/uL Baso # (Auto) 0.0 (0.0-0.1) K/uL Nucleated RBC % 0.0 /100WBC Nucleated RBCs # 0 K/uL Sodium 139 (136-148) mmol/L Potassium 4.3 (3.5-5.1) mmol/L Chloride 103 (98-107) mmol/L Carbon Dioxide 34.3 H (21.0-32.0) mmol/L BUN 16 (7.0-18.0) mg/dL Creatinine 0.9 (0.8-1.3) mg/dL Est Cr Clr Drug Dosing 81.72 mL/min Estimated GFR (MDRD) > 60.0 ml/min Glucose 87 (74-106) mg/dL Calcium 8.7 (8.5-10.1) mg/dL Total Bilirubin 0.3 (0.2-1.0) mg/dL AST 38 H (15-37) IU/L ALT 52 (14-63) IU/L Alkaline Phosphatase 47 (46-116) U/L Total Protein 5.6 L (6.4-8.2) g/dL Albumin 2.2 L (3.4-5.0) g/dL Globulin 3.4 (2.6-4.0) g/dL Albumin/Globulin Ratio 0.7 L (0.9-1.6) Collins Results Last 24 Hours: Microbiology 03/26/19 22:53 Urine Culture - Final Urine, Clean Catch MIXED GLENN 10,000-100,000 CFU/ML Med Orders - Current: Current Medications Folic Acid (Folic Acid) 1 mg SUBCUT DAILY [facility] Last Admin: 03/30/19 10:02 Dose: 1 mg Acetaminophen 1,000 mg/ Premix 100 mls @ 400 mls/hr IV Q6H PRN PRN Reason: Pain Last Admin: 03/30/19 07:56 Dose: 400 mls/hr Piperacillin Sod/Tazobactam (Sod 3.375 gm/ Sodium Chloride) 50 mls @ 100 mls/ hr IV Q6H [facility] Last Admin: 03/30/19 04:36 Dose: 100 mls/hr Oxycodone HCl (Oxycodone) 5 mg PO Q4H PRN PRN Reason: Pain Last Admin: 03/30/19 04:41 Dose: 5 mg Promethazine HCl (Phenergan) 25 mg PO Q8H PRN PRN Reason: Nausea/Vomiting Thiamine HCl (Vitamin B-1) 100 mg IV DAILY [facility] Last Admin: 03/30/19 10:00 Dose: 100 mg Discontinued Medications Hydrocodone Bitart/Acetaminophen ([place] 325-5 Mg) 1 tab PO Q4H PRN PRN Reason: Breakthrough Pain Aspirin (Aspirin) 324 mg PO ONETIME ONE Stop: 03/26/19 17:49 Last Admin: 03/26/19 17:57 Dose: 324 mg Desflurane (Suprane) Confirm Administered Dose 240 ml .ROUTE .STK-MED ONE Stop: 03/28/19 13:21 Dexamethasone (Dexamethasone) Confirm Administered Dose 20 mg .ROUTE .STK-MED ONE Stop: 03/28/19 10:12 Esmolol HCl (Esmolol) Confirm Administered Dose 100 mg .ROUTE .STK-MED ONE Stop: 03/28/19 11:39 Fentanyl (Sublimaze) Confirm Administered Dose 250 mcg .ROUTE .STK-MED ONE Stop: 03/28/19 09:51 Fentanyl (Sublimaze) Confirm Administered Dose 250 mcg .ROUTE .STK-MED ONE Stop: 03/28/19 11:34 Glycopyrrolate (Robinul) Confirm Administered Dose 0.4 mg .ROUTE .STK-MED ONE Stop: 03/28/19 12:12 Sodium Chloride (Normal Saline) 1,000 mls @ 999 mls/hr IV BOLUS ONE Stop: 03/26/19 19:11 Last Admin: 03/26/19 18:10 Dose: 999 mls/hr Lactated Ringer's (Ringers, Lactated) 1,000 mls @ 125 mls/hr IV ASDIRECTED [facility] Last Admin: 03/28/19 07:40 Dose: 125 mls/hr Levofloxacin/Dextrose 750 mg/ (Premix) 150 mls @ 100 mls/hr IV Q24H [facility] Last Admin: 03/26/19 23:16 Dose: 100 mls/hr Pantoprazole Sodium 40 mg/ (Sodium Chloride) 10 mls @ 300 mls/hr IV Q24H [facility] Last Admin: 03/28/19 23:10 Dose: 300 mls/hr Cefoxitin Sodium 1 gm/ Premix 50 mls @ 100 mls/hr IV Q6H [facility] Stop: 04/01/19 11:01 Last Admin: 03/27/19 11:08 Dose: 100 mls/hr Piperacillin Sod/Tazobactam (Sod 3.375 gm/ Sodium Chloride) 50 mls @ 100 mls/ hr IV Q6H [facility] Last Admin: 03/28/19 14:35 Dose: Not Given Lactated Ringer's (Ringers, Lactated) 1,000 mls @ 125 mls/hr IV ASDIRECTED [facility] Bupivacaine HCl/Epinephrine Bitart (Sensorc Mpf 0.25%-Epi 1:[id number]) Confirm Administered Dose 60 mls @ as directed .ROUTE .STK-MED ONE Stop: 03/28/19 09:28 Sodium Chloride (Normal Saline) Confirm Administered Dose 20 mls @ as directed .ROUTE .STK-MED ONE Stop: 03/28/19 10:02 Acetaminophen (Ofirmev) Confirm Administered Dose 100 mls @ as directed IV .STK- MED ONE Stop: 03/28/19 10:11 Lactated Ringer's (Ringers, Lactated) 1,000 mls @ 125 mls/hr IV ASDIRECTED [facility] Last Admin: 03/29/19 05:20 Dose: 125 mls/hr Piperacillin Sod/Tazobactam (Sod 3.375 gm/ Sodium Chloride) 50 mls @ 100 mls/ hr IV Q6H [facility] Last Admin: 03/29/19 09:25 Dose: 100 mls/hr Iopamidol (Isovue-370 (76%)) 100 ml IVPUSH ONETIME ONE Stop: 03/26/19 19:01 Last Admin: 03/26/19 19:01 Dose: 100 ml Iopamidol (Isovue Multipack-370 (76%)) 50 ml IVPUSH ONETIME STA Stop: 03/29/19 13:59 Last Admin: 03/29/19 14:00 Dose: 50 ml Ketamine HCl (Ketalar) Confirm Administered Dose 500 mg .ROUTE .STK-MED ONE Stop: 03/28/19 10:00 Ketorolac Tromethamine (Toradol) Confirm Administered Dose 60 mg .ROUTE .STK- MED ONE Stop: 03/28/19 12:12 Lidocaine (Xylocaine-Mpf 2%) Confirm Administered Dose 5 ml .ROUTE .STK-MED ONE Stop: 03/28/19 09:54 Lidocaine (Xylocaine-Mpf 2%) Confirm Administered Dose 5 ml .ROUTE .STK-MED ONE Stop: 03/28/19 12:27 Lorazepam (Ativan) 0.5 mg IVPUSH ONETIME ONE Stop: 03/27/19 03:27 Last Admin: 03/27/19 03:37 Dose: 0.5 mg Lorazepam (Ativan) 1 mg IVPUSH Q6H PRN PRN Reason: Anxiety Last Admin: 03/28/19 10:18 Dose: 1 mg Methadone HCl (Methadone) 20 mg PO BID [facility] Last Admin: 03/28/19 08:53 Dose: 20 mg Methadone HCl (Methadone) 10 mg PO DAILY@1200 [facility] Last Admin: 03/28/19 14:00 Dose: Not Given Methadone HCl (Methadone) 20 mg PO Q6H [facility] Last Admin: 03/29/19 08:05 Dose: 20 mg Methadone HCl (Methadone) 20 mg PO BID [facility] Methadone HCl (Methadone) 10 mg PO DAILY@1200 [facility] Last Admin: 03/29/19 12:30 Dose: 10 mg Methadone HCl (Methadone) 20 mg PO ONETIME ONE Stop: 03/30/19 09:30 Last Admin: 03/30/19 10:05 Dose: 20 mg Midazolam HCl (Versed 1 Mg/Ml) Confirm Administered Dose 2 mg .ROUTE .STK-MED ONE Stop: 03/28/19 09:51 Morphine Sulfate (Morphine) 2 mg IVPUSH ONETIME ONE Stop: 03/26/19 18:29 Last Admin: 03/26/19 18:34 Dose: 2 mg Morphine Sulfate (Morphine) Confirm Administered Dose 2 mg .ROUTE .STK-MED ONE Stop: 03/26/19 18:32 Last Admin: 03/26/19 18:53 Dose: Not Given Morphine Sulfate (Morphine) 2 mg IVPUSH ONETIME ONE Stop: 03/26/19 20:46 Last Admin: 03/26/19 22:31 Dose: 2 mg Morphine Sulfate (Morphine) 3 mg IVPUSH Q4H PRN PRN Reason: Pain Last Admin: 03/27/19 08:13 Dose: 3 mg Morphine Sulfate (Morphine) 4 mg IV Q3H PRN PRN Reason: PAIN Last Admin: 03/28/19 07:47 Dose: 4 mg Morphine Sulfate (Morphine) 3 mg IVPUSH Q4H PRN PRN Reason: Breakthrough Pain Neostigmine Methylsulfate (Neostigmine) Confirm Administered Dose 5 mg .ROUTE .STK-MED ONE Stop: 03/28/19 12:12 Nitroglycerin (Nitrostat) 0.4 mg SL Q5M PRN PRN Reason: Chest Pain Stop: 03/27/19 17:44 Last Admin: 03/26/19 18:10 Dose: 0.4 mg Octyl Cyanoacrylate (Dermabond Advance) Confirm Administered Dose 2 applic .ROUTE .STK-MED ONE Stop: 03/28/19 09:28 Ondansetron HCl (Zofran) 4 mg IVPUSH Q8H PRN PRN Reason: Nausea/Vomiting Ondansetron HCl (Zofran) Confirm Administered Dose 4 mg .ROUTE .STK-MED ONE Stop: 03/28/19 12:12 Propofol (Diprivan 20 Ml) Confirm Administered Dose 200 mg .ROUTE .STK-MED ONE Stop: 03/28/19 09:51 Rocuronium Blair (Zemuron) Confirm Administered Dose 100 mg .ROUTE .STK-MED ONE Stop: 03/28/19 09:54 Consult PN Assessment/Plan Procedures: Procedures ASSAY OF AMYLASE (05/13/18) ASSAY OF FREE TESTOSTERONE (10/16/16) ASSAY OF FREE THYROXINE (01/29/16) ASSAY OF LIPASE (05/13/18) ASSAY OF TOTAL TESTOSTERONE (10/16/16) ASSAY OF TROPONIN QUANT (05/13/18) ASSAY THYROID STIM HORMONE (03/16/18) COMPLETE CBC W/AUTO DIFF WBC (05/13/18) COMPREHEN METABOLIC PANEL (05/13/18) CORTISOL FREE (04/04/16) DRUG TEST PRSMV DIR OPT OBS (03/16/18) ELECTROCARDIOGRAM TRACING (05/13/18) EMERGENCY DEPT VISIT (05/13/18) FREE ASSAY (FT-3) (01/29/16) HYDRATE IV INFUSION ADD-ON (05/13/18) LIPID PANEL (03/16/18) METABOLIC PANEL TOTAL CA (05/13/18) PROTHROMBIN TIME (05/13/18) ROUTINE VENIPUNCTURE (05/13/18) THER/PROPH/DIAG INJ IV PUSH (05/13/18) TOTAL CORTISOL (04/01/16) TX/PRO/DX INJ NEW DRUG ADDON (05/13/18) URINALYSIS AUTO W/SCOPE (05/13/18) VIT D 1 25-DIHYDROXY (01/18/14) X-RAY EXAM CHEST 1 VIEW (05/13/18)
--- NOTE | 2019-03-30 09:26 | PCM.SURGPN ---
- General Info Date of Service: 03/30/19 Functional Status: Reports: Pain Controlled - Review of Systems Pulmonary: Reports: No Symptoms (on 3 l w 88% sat, agressive inc spirometer, and amb in [place]) - Patient Data Vitals - Most Recent: Last Vital Signs Temp 97.1 F 03/30/19 07:30 Pulse 55 L 03/30/19 07:30 Resp 14 03/30/19 07:30 BP 116/71 03/30/19 07:30 Pulse Ox 88 L 03/30/19 08:30 Weight - Most Recent: 153 lb 3.2 oz I&O - Last 24 Hours: Intake & Output 03/29/19 03/30/19 03/30/19 22:59 06:59 14:59 Intake Total 1310 940 100 Output Total 690 880 Balance 620 60 100 Lab Results Last 24 Hrs: Laboratory Results - last 24 hr 03/30/19 03/30/19 Range/Units 05:42 05:42 WBC 12.50 H (4.0-11.0) K/uL RBC 3.50 L (4.50-5.90) M/uL Hgb 10.8 L (13.0-17.0) g/dL Hct 33.7 L (38.0-50.0) % MCV 96.3 (80.0-98.0) fL MCH 30.9 (27.0-32.0) pg MCHC 32.0 (31.0-37.0) g/dL RDW Std Deviation 52.1 (28.0-62.0) fl RDW Coeff of Abdirizak 15 (11.0-15.0) % Plt Count 252 (150-400) K/uL MPV 9.40 (7.40-12.00) fL Neut % (Auto) 84.7 H (48.0-80.0) % Lymph % (Auto) 7.2 L (16.0-40.0) % [place] % (Auto) 6.5 (0.0-15.0) % Eos % (Auto) 1.6 (0.0-7.0) % Baso % (Auto) 0.0 (0.0-1.5) % Neut # (Auto) 10.6 H (1.4-5.7) K/uL Lymph # (Auto) 0.9 (0.6-2.4) K/uL [place] # (Auto) 0.8 (0.0-0.8) K/uL Eos # (Auto) 0.2 (0.0-0.7) K/uL Baso # (Auto) 0.0 (0.0-0.1) K/uL Nucleated RBC % 0.0 /100WBC Nucleated RBCs # 0 K/uL Sodium 139 (136-148) mmol/L Potassium 4.3 (3.5-5.1) mmol/L Chloride 103 (98-107) mmol/L Carbon Dioxide 34.3 H (21.0-32.0) mmol/L BUN 16 (7.0-18.0) mg/dL Creatinine 0.9 (0.8-1.3) mg/dL Est Cr Clr Drug Dosing 81.72 mL/min Estimated GFR (MDRD) > 60.0 ml/min Glucose 87 (74-106) mg/dL Calcium 8.7 (8.5-10.1) mg/dL Total Bilirubin 0.3 (0.2-1.0) mg/dL AST 38 H (15-37) IU/L ALT 52 (14-63) IU/L Alkaline Phosphatase 47 (46-116) U/L Total Protein 5.6 L (6.4-8.2) g/dL Albumin 2.2 L (3.4-5.0) g/dL Globulin 3.4 (2.6-4.0) g/dL Albumin/Globulin Ratio 0.7 L (0.9-1.6) Collins Results Last 24 Hrs: Microbiology 03/26/19 22:53 Urine Culture - Final Urine, Clean Catch MIXED GLENN 10,000-100,000 CFU/ML Med Orders - Current: Current Medications Folic Acid (Folic Acid) 1 mg SUBCUT DAILY [facility] Last Admin: 03/29/19 09:24 Dose: 1 mg Acetaminophen 1,000 mg/ Premix 100 mls @ 400 mls/hr IV Q6H PRN PRN Reason: Pain Last Admin: 03/30/19 07:56 Dose: 400 mls/hr Piperacillin Sod/Tazobactam (Sod 3.375 gm/ Sodium Chloride) 50 mls @ 100 mls/ hr IV Q6H [facility] Last Admin: 03/30/19 04:36 Dose: 100 mls/hr Oxycodone HCl (Oxycodone) 5 mg PO Q4H PRN PRN Reason: Pain Last Admin: 03/30/19 04:41 Dose: 5 mg Promethazine HCl (Phenergan) 25 mg PO Q8H PRN PRN Reason: Nausea/Vomiting Thiamine HCl (Vitamin B-1) 100 mg IV DAILY [facility] Last Admin: 03/29/19 09:21 Dose: 100 mg Discontinued Medications Hydrocodone Bitart/Acetaminophen ([place] 325-5 Mg) 1 tab PO Q4H PRN PRN Reason: Breakthrough Pain Aspirin (Aspirin) 324 mg PO ONETIME ONE Stop: 03/26/19 17:49 Last Admin: 03/26/19 17:57 Dose: 324 mg Desflurane (Suprane) Confirm Administered Dose 240 ml .ROUTE .STK-MED ONE Stop: 03/28/19 13:21 Dexamethasone (Dexamethasone) Confirm Administered Dose 20 mg .ROUTE .STK-MED ONE Stop: 03/28/19 10:12 Esmolol HCl (Esmolol) Confirm Administered Dose 100 mg .ROUTE .STK-MED ONE Stop: 03/28/19 11:39 Fentanyl (Sublimaze) Confirm Administered Dose 250 mcg .ROUTE .STK-MED ONE Stop: 03/28/19 09:51 Fentanyl (Sublimaze) Confirm Administered Dose 250 mcg .ROUTE .STK-MED ONE Stop: 03/28/19 11:34 Glycopyrrolate (Robinul) Confirm Administered Dose 0.4 mg .ROUTE .STK-MED ONE Stop: 03/28/19 12:12 Sodium Chloride (Normal Saline) 1,000 mls @ 999 mls/hr IV BOLUS ONE Stop: 03/26/19 19:11 Last Admin: 03/26/19 18:10 Dose: 999 mls/hr Lactated Ringer's (Ringers, Lactated) 1,000 mls @ 125 mls/hr IV ASDIRECTED [facility] Last Admin: 03/28/19 07:40 Dose: 125 mls/hr Levofloxacin/Dextrose 750 mg/ (Premix) 150 mls @ 100 mls/hr IV Q24H [facility] Last Admin: 03/26/19 23:16 Dose: 100 mls/hr Pantoprazole Sodium 40 mg/ (Sodium Chloride) 10 mls @ 300 mls/hr IV Q24H [facility] Last Admin: 03/28/19 23:10 Dose: 300 mls/hr Cefoxitin Sodium 1 gm/ Premix 50 mls @ 100 mls/hr IV Q6H [facility] Stop: 04/01/19 11:01 Last Admin: 03/27/19 11:08 Dose: 100 mls/hr Piperacillin Sod/Tazobactam (Sod 3.375 gm/ Sodium Chloride) 50 mls @ 100 mls/ hr IV Q6H [facility] Last Admin: 03/28/19 14:35 Dose: Not Given Lactated Ringer's (Ringers, Lactated) 1,000 mls @ 125 mls/hr IV ASDIRECTED [facility] Bupivacaine HCl/Epinephrine Bitart (Sensorc Mpf 0.25%-Epi [id number]) Confirm Administered Dose 60 mls @ as directed .ROUTE .STK-MED ONE Stop: 03/28/19 09:28 Sodium Chloride (Normal Saline) Confirm Administered Dose 20 mls @ as directed .ROUTE .STK-MED ONE Stop: 03/28/19 10:02 Acetaminophen (Ofirmev) Confirm Administered Dose 100 mls @ as directed IV .STK- MED ONE Stop: 03/28/19 10:11 Lactated Ringer's (Ringers, Lactated) 1,000 mls @ 125 mls/hr IV ASDIRECTED [facility] Last Admin: 03/29/19 05:20 Dose: 125 mls/hr Piperacillin Sod/Tazobactam (Sod 3.375 gm/ Sodium Chloride) 50 mls @ 100 mls/ hr IV Q6H [facility] Last Admin: 03/29/19 09:25 Dose: 100 mls/hr Iopamidol (Isovue-370 (76%)) 100 ml IVPUSH ONETIME ONE Stop: 03/26/19 19:01 Last Admin: 03/26/19 19:01 Dose: 100 ml Iopamidol (Isovue Multipack-370 (76%)) 50 ml IVPUSH ONETIME STA Stop: 03/29/19 13:59 Last Admin: 03/29/19 14:00 Dose: 50 ml Ketamine HCl (Ketalar) Confirm Administered Dose 500 mg .ROUTE .STK-MED ONE Stop: 03/28/19 10:00 Ketorolac Tromethamine (Toradol) Confirm Administered Dose 60 mg .ROUTE .STK- MED ONE Stop: 03/28/19 12:12 Lidocaine (Xylocaine-Mpf 2%) Confirm Administered Dose 5 ml .ROUTE .STK-MED ONE Stop: 03/28/19 09:54 Lidocaine (Xylocaine-Mpf 2%) Confirm Administered Dose 5 ml .ROUTE .STK-MED ONE Stop: 03/28/19 12:27 Lorazepam (Ativan) 0.5 mg IVPUSH ONETIME ONE Stop: 03/27/19 03:27 Last Admin: 03/27/19 03:37 Dose: 0.5 mg Lorazepam (Ativan) 1 mg IVPUSH Q6H PRN PRN Reason: Anxiety Last Admin: 03/28/19 10:18 Dose: 1 mg Methadone HCl (Methadone) 20 mg PO BID [facility] Last Admin: 03/28/19 08:53 Dose: 20 mg Methadone HCl (Methadone) 10 mg PO DAILY@1200 [facility] Last Admin: 03/28/19 14:00 Dose: Not Given Methadone HCl (Methadone) 20 mg PO Q6H [facility] Last Admin: 03/29/19 08:05 Dose: 20 mg Methadone HCl (Methadone) 20 mg PO BID [facility] Methadone HCl (Methadone) 10 mg PO DAILY@1200 [facility] Last Admin: 03/29/19 12:30 Dose: 10 mg Midazolam HCl (Versed 1 Mg/Ml) Confirm Administered Dose 2 mg .ROUTE .STK-MED ONE Stop: 03/28/19 09:51 Morphine Sulfate (Morphine) 2 mg IVPUSH ONETIME ONE Stop: 03/26/19 18:29 Last Admin: 03/26/19 18:34 Dose: 2 mg Morphine Sulfate (Morphine) Confirm Administered Dose 2 mg .ROUTE .STK-MED ONE Stop: 03/26/19 18:32 Last Admin: 03/26/19 18:53 Dose: Not Given Morphine Sulfate (Morphine) 2 mg IVPUSH ONETIME ONE Stop: 03/26/19 20:46 Last Admin: 03/26/19 22:31 Dose: 2 mg Morphine Sulfate (Morphine) 3 mg IVPUSH Q4H PRN PRN Reason: Pain Last Admin: 03/27/19 08:13 Dose: 3 mg Morphine Sulfate (Morphine) 4 mg IV Q3H PRN PRN Reason: PAIN Last Admin: 03/28/19 07:47 Dose: 4 mg Morphine Sulfate (Morphine) 3 mg IVPUSH Q4H PRN PRN Reason: Breakthrough Pain Neostigmine Methylsulfate (Neostigmine) Confirm Administered Dose 5 mg .ROUTE .STK-MED ONE Stop: 03/28/19 12:12 Nitroglycerin (Nitrostat) 0.4 mg SL Q5M PRN PRN Reason: Chest Pain Stop: 03/27/19 17:44 Last Admin: 03/26/19 18:10 Dose: 0.4 mg Octyl Cyanoacrylate (Dermabond Advance) Confirm Administered Dose 2 applic .ROUTE .STK-MED ONE Stop: 03/28/19 09:28 Ondansetron HCl (Zofran) 4 mg IVPUSH Q8H PRN PRN Reason: Nausea/Vomiting Ondansetron HCl (Zofran) Confirm Administered Dose 4 mg .ROUTE .STK-MED ONE Stop: 03/28/19 12:12 Propofol (Diprivan 20 Ml) Confirm Administered Dose 200 mg .ROUTE .STK-MED ONE Stop: 03/28/19 09:51 Rocuronium [place] (Zemuron) Confirm Administered Dose 100 mg .ROUTE .STK-MED ONE Stop: 03/28/19 09:54 - Exam Wound/Incisions: Healing Well Neck: Supple Lungs: Rales GI/Abdominal Exam: Soft - Problem List Review Problem List Initiated/Reviewed/Updated: Yes - My Orders Last 24 Hours: Active Orders 24 hr Category Date Time Status Communication Order [RC] ROUTINE Care 03/29/19 09:41 Active Ready for Discharge [RC] PER UNIT ROUTINE Care 03/29/19 09:40 Inactive Consult to Physical Therapy [PT Evaluation and Cons 03/30/19 08:25 Active Treatment] [CONS] Routine Low Fat Diet [DIET] Diet 03/30/19 Breakfast Active Piperacillin/Tazobactam [Piperacil-Tazobact] 3.375 gm Med 03/29/19 17:00 Active Sodium Chloride 0.9% [Normal Saline] 50 ml IV Q6H oxyCODONE Med 03/29/19 16:22 Active 5 mg PO Q4H PRN RT Supplemental Oxygen Titration [RESPCARE] Routine Oth 03/30/19 08:26 Active Medication Orders Folic Acid (Folic Acid) 1 mg SUBCUT DAILY [facility] Last Admin: 03/29/19 09:24 Dose: 1 mg Admin: 03/28/19 09:00 Dose: 1 mg Admin: 03/27/19 22:45 Dose: 1 mg Acetaminophen 1,000 mg/ Premix 100 mls @ 400 mls/hr IV Q6H PRN PRN Reason: Pain Last Admin: 03/30/19 07:56 Dose: 400 mls/hr Infusion: 03/29/19 20:35 Dose: 400 mls/hr Admin: 03/29/19 20:20 Dose: 400 mls/hr Piperacillin Sod/Tazobactam (Sod 3.375 gm/ Sodium Chloride) 50 mls @ 100 mls/ hr IV Q6H [facility] Last Admin: 03/30/19 04:36 Dose: 100 mls/hr Infusion: 03/29/19 23:54 Dose: 100 mls/hr Admin: 03/29/19 23:24 Dose: 100 mls/hr Infusion: 03/29/19 18:15 Dose: 100 mls/hr Admin: 03/29/19 17:45 Dose: 100 mls/hr Oxycodone HCl (Oxycodone) 5 mg PO Q4H PRN PRN Reason: Pain Last Admin: 03/30/19 04:41 Dose: 5 mg Admin: 03/29/19 23:28 Dose: 5 mg Promethazine HCl (Phenergan) 25 mg PO Q8H PRN PRN Reason: Nausea/Vomiting Thiamine HCl (Vitamin B-1) 100 mg IV DAILY [facility] Last Admin: 03/29/19 09:21 Dose: 100 mg Admin: 03/28/19 08:55 Dose: 100 mg Admin: 03/27/19 22:49 Dose: 100 mg - Assessment Assessment (Free Text/Narrative):: doing well postop, laci drainage minimal and serosanguinous; still on 3 L O2 sat 88; aggressive inc spirometer, amb in [place]; on iv abx; when O2 doing better, home - Plan Plan (Free Text/Narrative):: doing well postop, laci drainage minimal and serosanguinous; still on 3 L O2 sat 88; aggressive inc spirometer, amb in [place]; on iv abx; when O2 doing better, home
[2019-03-30] MEDS ORDERED: Methadone 10 MG Tab PO ONE (09:29)
[2019-03-30] MEDS: Thiamine 200 MG/2 ML MDV IV SCH (10:00)
[2019-03-30] MEDS: Folic Acid 50 MG/10 ML MDV SUBCUT SCH (10:02)
--- NOTE | 2019-03-30 15:07 | PCM.SN ---
- Free Text/Narrative Note: after ambulation in [place], and agressive pulm exercise and inc spirometer, pt sat 90 -92 on room air; home on script
== END 2019-03-30 15:40 | disposition home or self-care (01) ==
LOC: MW.ED 17:37 → MW.MS 21:34
PROVIDERS: ADMIT Surgery; ATTEND Surgery
DX: R10.11 Right upper quadrant pain (principal); G89.29 Other chronic pain; M54.5 Low back pain; F17.290 Nicotine dependence, other tobacco product, uncomplicated; Z79.891 Long term (current) use of opiate analgesic; Z98.890 Other specified postprocedural states; Z79.899 Other long term (current) drug therapy
CPT/HCPCS: 36415; 71045; 71275; 74177; 76705; 80053; 81001; 82150; 83690; 84484; 85025; 85610; 87070; 87075; 87086; 87186; 87205; 88304; 93005; 93306; 96361; 96365; 96366; 96367; 96372; 96375; 96376; 97161; 99285; A9270; C9113; G0378; J0131; J0694; J1100; J1885; J1956; J2001; J2060; J2250; J2270; J2405; J2543; J2704; J3010; J3411; J3490; J7040; J7050; J7120; Q9967; 00790; 87077; 96374; 99284